=== PATIENT | female | born 1985 | race Caucasian/White ===

== ENCOUNTER 2019-06-25 20:08 | Emergency (ER) | payer MEDICAID, SELFPAY ==
[2019-06-25 20:15] VITALS: BP 123/76; PULSE 82; RESP 16; TEMP 37.1; O2SAT 99
--- NOTE | 2019-06-25 20:48 | W.ED.GENAD ---
Discharge Plan Disposition Patient Disposition: HOME Condition: Improving Discharge Details Chief Complaint: DentalOral Clinical Impression: Odontalgia Primary Care Provider: Kvng Masters ED Provider: Homar Ocasio Home Meds and New Rx's Prescriptions: New penicillin V potassium 500 mg tablet 500 mg PO QID 10 Days Qty: 40 RF: 0 Continued buprenorphine HCl 8 MG tablet, sublingual 8 mg Sublingual DAILY RF: 0 buprenorphine HCl 2 MG tablet, sublingual 2 mg Sublingual DAILY Qty: 30 RF: 0 sertraline 100 mg Tablet 100 mg DAILY RF: 0 Discharge Instructions Instructions: Toothache (ED) Additional Instructions: Please follow-up with dentistry for recheck. See enclosed list of providers. Take antibiotics as prescribed. May continue Tylenol and/or ibuprofen as needed for discomfort. May use dental wax to reduce discomfort. Return to the ER for increasing pain, swelling, development of fever, or any other acute concerns. Medical Decision Making 33-year-old female with poor dentition, numerous dental caries, presents with right mandibular premolar odontalgia. She does not have evidence of abscess. I discussed with her that I feel she will need the tooth removed. Her pain was improved with the administration of an inferior alveolar nerve block. I will place her on penicillin. She may use dental wax for comfort, continue [id number] medications for comfort. She will follow-up with dentistry. [facility] General Mode of arrival: ambulatory. Date/Time Provider Initiated Documentation: 06/25/19 20:32. Limitations to Documentation: no limitations. Information obtained by: patient. History of Present Illness 33 year old F presents to the emergency department with the chief complaint of Right lower mandibular broken tooth and pain, described as moderate, Quality is described as aching, and is localized to the mouth and right. Patient reports no radiation. Patient started experiencing this day(s) and it has been intermittent. Eating improves symptom(s), Patient notes no other symptoms.. Patient did receive the following treatments prior to arrival, NSAID Related Data Home Medications Medication Instructions Recorded Confirmed buprenorphine HCl 2 mg SUBLINGUAL DAILY #30 12/10/16 06/25/19 buprenorphine HCl 8 mg SUBLINGUAL DAILY tab-cap 12/10/16 06/25/19 penicillin V potassium 500 mg PO QID 10 Days #40 tab 06/25/19 sertraline 100 mg DAILY 06/25/19 06/25/19 Previous Rx's Medication Instructions Recorded penicillin V potassium 500 mg PO QID 10 Days #40 tab 06/25/19 Allergies Allergy/AdvReac Type Severity Reaction Status Date / Time cefaclor [From Ceclor] Allergy Unknown Unverified 06/25/19 20:18 sulfamethoxazole Allergy Unknown Unverified 06/25/19 20:18 [From Septra] trimethoprim [From Septra] Allergy Unknown Unverified 06/25/19 20:18 General Stated Complaint: DentalOral LAURIE: 4 Review of Systems Narrative: 6 systems reviewed and otherwise negative. No change to voice. She has otherwise recently been well. [facility] Medical History Asthma Suboxone maintenance treatment complicating , antepartum Surgical History (Updated 06/14/18 @ 14:36 by [employer] [place]) section (07/28/10) [facility]- 08/31/2013 Family History Mother Substance abuse cocaine during Alcohol abuse Mental disorder Schizophrenia, manic depression Hepatitis C Stroke Multiple sclerosis Asthma Father No problems noted. Brother Substance abuse multiple drugs Alcohol abuse Mental disorder Depression, pulling hair out disorder Social History Smoking/Tobacco Use Status: Current every day Tobacco Type: cigarettes Drug use: Daily Do you feel safe at home: Yes Do you feel safe in your relationship?: Yes Exam Narrative Exam Narrative: GEN: awake, alert, oriented 3. Pleasant, well groomed, interactive. HEAD: Normocephalic, atraumatic ENT: Mucous membranes moist, oropharynx with numerous dental caries. Broken buccal and lingual cusps of first premolar, tenderness at that tooth, no fluctuance or swelling. External ear exam unremarkable EYES: PERRL, EOMI NECK: Full ROM, no IMER, no menigismus CHEST/RESP: Nontender, clear to auscultation bilateral, no wheeze/rhonchi/rales CARDIOVASCULAR: RRR, no murmur, rub juarez. 2+ Rad pulse bilateral EXT: Full ROM, no edema, no rash Neuro: Grossly normal neurologic exam, conversant, interactive. Psych: Speech fluent, thoughts congruent, affect normal Course Vital Signs Vital signs: Vital Signs Temperature 37.1 C 06/25/19 20:15 Pulse 82 10/28/19 20:15 Respiratory Rate 16 06/25/19 20:15 Blood Pressure 123/76 06/25/19 20:15 Pulse Oximetry 99 06/25/19 20:15 Temperature 37.1 C 06/25/19 20:15 Temperature Source Skin 06/25/19 20:15 Pulse 82 06/25/19 20:15 Respiratory Rate 16 06/25/19 20:15 Respiratory Effort 06/25/19 20:21 Blood Pressure 123/76 06/25/19 20:15 Blood Pressure Position Sitting 06/25/19 20:15 Pulse Oximetry 99 06/25/19 20:15 Oxygen Delivery Method Room Air 06/25/19 20:15 Oxygen Flow Rate 0 06/25/19 20:15 Pain Level 6 06/25/19 20:21 Procedures Nerve Block Nerve Block 1: Local Anesthetic: Lidocaine 1% and Bupivicaine 0.25% Amount of anesthesia used (mL): 2 Side: right Intraoral Nerve Block: inferior alveolar Procedure Successful: Yes Patient Tolerated Procedure: well Complications: none
[2019-06-25] MEDS: Penicillin V POTASSIUM 500 MG TAB, 4 TABS/BTL PO (20:56)
== END 2019-06-25 20:58 | disposition home or self-care (01) ==
PROVIDERS: Emergency Provider Emergency Medicine; PCP Family Medicine
DX: K08.89 Other specified disorders of teeth and supporting structures (principal)
CPT/HCPCS: 64400

== ENCOUNTER 2019-08-05 16:03 | Emergency (ER) | payer MEDICAID, SELFPAY ==
[2019-08-05 16:06] VITALS: BP 136/95; PULSE 95; RESP 16; TEMP 36.6; O2SAT 95
--- NOTE | 2019-08-05 16:09 | W.ED.GENAD ---
Discharge Plan Disposition Patient Disposition: HOME Condition: Stable Discharge Details Chief Complaint: RespSymp Clinical Impression: Acute sinusitis Primary Care Provider: Kvng Masters ED Provider: Crsi Clancy Home Meds and New Rx's Prescriptions: New amoxicillin-pot clavulanate [Augmentin] 875-125 mg tablet 1 tab PO BID 10 Days Qty: 20 RF: 0 No Action buprenorphine HCl 8 MG tablet, sublingual 12 mg Sublingual DAILY RF: 0 sertraline 100 mg Tablet 100 mg DAILY RF: 0 Discharge Instructions Instructions: How to Stop Smoking (ED), Sinusitis (ED), Cigarette Smoking and Your Health (GEN) Additional Instructions: Take the antibiotics until finished. Alternate Tylenol and Motrin as needed and directed for pain. Use saline nose spray to help with clearing mucus and keeping the inside of your nose moist. Follow-up with your primary care doctor within the next week for reevaluation. Return to the emergency department if you develop any worsening or new concerning symptoms. Discharge Data Discharge Date/Time-TO BE ENTERED AT DEPARTURE: 08/05/19 16:30 Discharge Physician: Cris Clancy Medical Decision Making 33-year-old female who is a tobacco smoker who presents with sinus congestion, sinus and facial pain, green nasal discharge for the past week. Afebrile. Patient appears nontoxic. She has right frontal and maxillary sinus tenderness, normal TMs and posterior pharynx. Lungs clear. Denies chance of , she has Nexplanon. Discussed with patient that her symptoms could have started as a viral sinusitis but may have evolved into a bacterial sinusitis. As she is a smoker, increased risk for bacterial colonization. She is advised on the importance of smoking cessation for general health and with risk of resistant and prolonged infections. Allergy list notes a history of allergies to Ceclor. Patient states this is a long time ago when she is unsure of the reaction. She states she has tolerated penicillin and amoxicillin in the past without any adverse reaction. She was given 1 dose of Augmentin here as well as prescription for home. She was advised on saline nose spray, alternate Tylenol Motrin. She is advised to follow-up with her primary care doctor for reevaluation and to return at anytime if worse. HPI General Date/Time Provider Initiated Documentation: 08/05/19 16:05. HPI Narrative: Patient is a 33-year-old female who presents with sinus congestion, green and yellow nasal discharge, right-sided facial pain, headache, and sore throat for the past week. Patient states she saw her primary care doctor several days ago for the same complaint and was diagnosed in sinus infection and prescribed decongestants which she has been taking without relief. She states she feels she needs antibiotics. She admits to occasional hot and cold chills but she denies any known fever. She has been alternating Tylenol and Motrin. She denies ear pain, neck pain. She does admit to occasional cough with green sputum but denies any shortness of breath or chest pain. Related Data Home Medications Medication Instructions Recorded Confirmed buprenorphine HCl 12 mg SUBLINGUAL DAILY tab-cap 12/10/16 08/05/19 sertraline 100 mg DAILY 06/25/19 08/05/19 amoxicillin-pot clavulanate 1 tab PO BID 10 Days #20 tab 08/05/19 [Augmentin] Previous Rx's Medication Instructions Recorded amoxicillin-pot clavulanate 1 tab PO BID 10 Days #20 tab 08/05/19 [Augmentin] Allergies Allergy/AdvReac Type Severity Reaction Status Date / Time cefaclor [From Ceclor] Allergy Unknown Unverified 08/05/19 16:09 sulfamethoxazole Allergy Unknown Unverified 08/05/19 16:09 [From Septra] trimethoprim [From Septra] Allergy Unknown Unverified 08/05/19 16:09 General Stated Complaint: RespSymp LAURIE: 4 Review of Systems All systems reviewed & are unremarkable except as noted in HPI and below Constitutional Constitutional: Reports as per HPI, Denies chills, Denies fever(s) and Reports headache(s) Eyes Eyes: Denies blurry vision ENT Ears, Nose, Mouth, and Throat: Denies dizziness, Reports headache(s), Reports nasal congestion, Reports nasal discharge, Reports sinus pain, Reports sinus pressure, Reports sore throat (mild ) and Denies throat swelling Cardiovascular Cardiovascular: Denies chest pain and Denies dyspnea Respiratory Respiratory: Reports cough and Denies dyspnea Gastrointestinal Gastrointestinal: Denies abdominal pain, Denies diarrhea and Denies vomiting Genitourinary Genitourinary: Denies hematuria and Denies dysuria Musculoskeletal Musculoskeletal: Denies back pain and Denies numbness Integumentary/Breasts Skin/Breast: Denies lesions and Denies rash Neurologic Neurologic: Denies dizziness, Reports headache(s), Denies focal weakness and Denies numbness Allergic/Immunologic Allergic/Immunologic: Denies throat swelling [facility] Medical History Asthma Suboxone maintenance treatment complicating , antepartum Surgical History section (07/28/10) [facility] Family History Mother Substance abuse cocaine during Alcohol abuse Mental disorder Schizophrenia, manic depression Hepatitis C Stroke Multiple sclerosis Asthma Father No problems noted. Brother Substance abuse multiple drugs Alcohol abuse Mental disorder Depression, pulling hair out disorder Social History Smoking/Tobacco Use Status: Current every day Tobacco Type: cigarettes Alcohol Intake: never Drug use: Current Sobriety Substance use type: opiates Do you feel safe at home: Yes Do you feel safe in your relationship?: Yes Exam Const General: cooperative, healthy appearing and no acute distress HENMT Head: normal to inspection Ears: hearing grossly normal bilaterally, external ears normal and TM's normal bilaterally General nose exam: external nose normal Face and sinus: sinus tenderness frontal (Right) and maxillary (Right) Mouth: oral mucosae normal Teeth and gingiva: poor dentition Throat: posterior oropharynx normal, tonsils normal, uvula midline and no peritonsillar masses Eyes General: appearance normal, both eyes and all related structures Neck Neck: normal visual inspection, full ROM, no lymphadenopathy, no meningeal signs, trachea midline, supple and No submandibular swelling Resp Effort & Inspection: normal respiratory effort and able to speak in complete sentences Auscultation: clear to auscultation bilaterally, no rhonchi and no wheezes Cardio Rate: regular rate Rhythm: regular rhythm Skin General skin exam: no rashes or lesions noted Neuro General: alert, awake and oriented x3 Motor: muscle tone normal throughout Extrem General: normal to inspection and full ROM Psych Appearance: grossly normal Affect: normal affect Course Vital Signs Vital signs: Vital Signs Temperature 97.9 F 08/05/19 16:06 Pulse 95 H 08/05/19 16:06 Respiratory Rate 16 08/05/19 16:06 Blood Pressure 136/95 H 08/05/19 16:06 Pulse Oximetry 95 08/05/19 16:06 Temperature 97.9 F 08/05/19 16:06 Temperature Source Temporal Artery Scan 08/05/19 16:06 Pulse 95 H 08/05/19 16:06 Respiratory Rate 16 08/05/19 16:06 Respiratory Effort Non-Labored 08/05/19 16:06 Respiratory Depth Normal 08/05/19 16:06 Blood Pressure 136/95 H 08/05/19 16:06 Blood Pressure Position Sitting 08/05/19 16:06 Pulse Oximetry 95 08/05/19 16:06 Oxygen Delivery Method Room Air 08/05/19 16:06 Oxygen Flow Rate 0 08/05/19 16:06
[2019-08-05] MEDS: Amox. 875/Clav. 125, 2 TABS/BTL 1 TAB PO (16:32)
== END 2019-08-05 16:30 | disposition home or self-care (01) ==
PROVIDERS: Emergency Provider Physician Assistant; PCP Family Medicine
DX: J01.80 Other acute sinusitis (principal); F17.210 Nicotine dependence, cigarettes, uncomplicated
CPT/HCPCS: 99283

== ENCOUNTER 2021-09-18 20:59 | Outpatient (REF) | payer MEDICAID, SELFPAY ==
[2021-09-18 20:30] LABS: Calculated LDL 121 mg/dL (<100); Cholesterol 186 mg/dL (<200); HDL Cholesterol 50 mg/dL (40-60); Triglyceride 75 mg/dL (<150)
[2021-09-21 10:04] LABS: Hepatitis B Surface Ag Negative (Negative)
== END 2021-09-18 21:00 | disposition home or self-care (01) ==
LOC: NCHCN 20:59
PROVIDERS: PCP Family Medicine; Visit Provider Family Medicine
DX: Z00.00 Encounter for general adult medical examination without abnormal findings (principal)
CPT/HCPCS: 80061; 87340

== ENCOUNTER 2022-05-05 18:29 | Emergency (ER) | payer MEDICAID, SELFPAY ==
[2022-05-05] VITALS (17 sets, daily range): BP systolic 108–137; BP diastolic 68–99; PULSE 72–111; RESP 7–26; TEMP 35.8; O2SAT 97–100
--- NOTE | 2022-05-05 18:30 | RT.EKG_ITS ---
APPROVED REPORT Exam: Resting ECG Reason for Exam: DIFFICULTY BREATHING Patient Location: E HR:99 bpm ECG Measurements Heart Rate 99 AXIS TX 115 P 79 QRSd 75 QRS 58 QT 349 T 40 QTc 449 Conclusion Sinus rhythm...normal P axis, V-rate 60- 99
--- NOTE | 2022-05-05 18:45 | DI.CT_ITS ---
Exam(s) CT CHEST PE ABD PELVIS W EXAM: CT CHEST PE ABD PELVIS W CLINICAL HISTORY: pleuritic right chest and upper abdomen pain. TECHNIQUE: Imaging Protocol: Axial CT angiography was performed with multi-slice acquisition and mu lti-planar and/or 3D reconstructions. CONTRAST MATERIAL: Intravenous: Omnipaque 350contrast volume:100 mL COMPARISON: No exams were available for comparison FINDINGS: CHEST: Tracheobronchial tree: Patent where visualized. Pulmonary parenchyma: There is a patchy consolidation in the left upper lobe anteriorly. No architec tural distortion. Pulmonary Arteries: No evidence of filling defect to suggest pulmonary emboli. Mediastinum and Racquel: No dominant adenopathy or fluid collection. The esophagus is unremarkable. Visualized thyroid gland: Unremarkable. Pleura: No effusion or pneumothorax. Heart: The heart is not dilated. No coronary artery calcifications are seen. No pericardial effusion. Aorta: Thoracic aorta non-dilated. No evidence of dissection. Bones: Within normal limits for the patient's age. Soft tissues: Unremarkable. ABDOMEN: Liver: Normal density. No measurable mass. Portal, Superior Mesenteric, and Splenic Veins: Unremarkable. Gallbladder and Biliary Tract: No radiodense calculus or dilation. Pancreas: Normal density, no abnormal calcifications or inflammatory process. Spleen: Normal. Adrenals: No masses seen. Kidneys: Normal size, contour and axis. No radiodense stones or obstructive uropathy. No masses seen. Abdominal Aorta: Abdominal portion non-dilated. Bowel: No evidence of bowel obstruction. There is diffuse thickening of the antrum of the stomach. No evidence of appendicitis. Peritoneal Cavity: There is a trace amount of fluid in the pelvis which is likely physiologic. No fr ee air. Lymph Nodes: Within normal limits. Bones: Within normal limits for the patient's age. There is sclerosis seen at the romi bilaterally, left greater than right consistent with, osteitis condensans ileitis. Soft Tissues: Unremarkable. PELVIS: Bladder: Symmetric distention, no gross wall thickening. Reproductive Organs: Bilateral ovarian cysts. The largest is on the right and measures 3.4 cm. Thes e are likely physiologic. Lymph Nodes: Within normal limits. Bones: Within normal limits. IMPRESSION: 1. No evidence pulmonary embolism, thoracic aortic dissection or aneurysm. 2. Left upper lobe pneumonia. 3. No acute abdominal or pelvic process. 4. Prominent antral gastric wall thickening. Inflammatory/infectious gastritis should be considered. Peptic ulcer disease should also be considered. Follow-up of the gastric findings should be consid ered if clinically appropriate. Complete RADIATION DOSE DELIVERED: 1,222.82mGy.cm Total DLP DATA REPOSITORY: All CT scans at this facility are submitted to the National Radiology Data Registry (NRDR) Dose Index Registry (DIR) with the [employer] (ACR). RADIATION OPTIMIZATION: All CT scans at this facility use at least one of these dose optimization te chniques: automated exposure control; mA and/or kV adjustment per patient size (includes targeted exa ms where dose is matched to clinical indication); or iterative reconstruction.
--- NOTE | 2022-05-05 18:59 | ED.GENADUL_ITS ---
Discharge Plan Disposition Patient Disposition: HOME Condition: Stable Discharge Details Clinical Impression: Chest pain, Abdominal pain, Gastritis Primary Care Provider: Kvng Masters ED Provider: Jose Alarcon Home Meds and New Rx's Prescriptions: New doxycycline hyclate 100 mg tablet 100 mg PO BID Qty: 14 0RF ondansetron 4 mg tablet,disintegrating 4 mg PO Q8H PRN (Reason: nausea and vomiting) Qty: 30 0RF Continued buprenorphine HCl 8 MG tablet, sublingual 12 mg Sublingual DAILY sertraline 100 mg Tablet 100 mg DAILY hydroxyzine HCl 25 mg tablet 25 mg PO PRN PRN Label Comments: TAKE 1 TABLET BY MOUTH THREE TIMES DAILY NEEDED Discharge Instructions Instructions: Gastritis (ED) Additional Instructions: your cat scan showed some inflammation of the stomach likely related to acid reflux you are being treated for a possible lung infection based on your lung findings on cat scan if not better in a week follow up with your primary care provider if you feel more ill, have severe worsening pain or persistent vomit return to the emergency department Medical Decision Making 36 yo female on suboxone and is currently sober, comes in with chief complaint of 3 days of right sided lower chest and upper abdomen pain and n/v. She denies fevers, chills, vaginal bleeding or discharge. She denies having symptoms like this in the past. She is stable on arrival, mildly tachycardic in the low 100's. She has normal appearing ef on bedside pocus and no pericardial effusion or significantly enlarged rv. She has a soft abdomen with tenderness in the ruq, no lower abdomen tenderness. Clear lung sounds. Given location of pain concern for pe, nstemi, pericarditis, cholecystitis, will obtain labs including cbc, cmp, lipase, and obtain ct for pe and also ct abd/pelvis pt feeling significantly better and has minimal epigastric tenderness now, no ruq tenderness. labs unremarkable, ct shows possible pneumonia inleft upper lobe, she states she has a cough but is not worse than her baseline, will treat with doxy. Her ct abdomen shows no acute findings, has findings possibly due to gastritis, states she used to be on zantac but not anymore. Suspect gastritis vs gastroenteritis, given 3 days of symptoms do not feel delta troponin indicated. She is stable for d/c, advised to f/u with pcp and return precautions given Differential Diagnosis Differential Diagnosis: pe, nstemi, pericarditis, cholecystitis, pancreatitis Imaging Data Radiologic Study: Attestation: I personally reviewed and interpreted this imaging study as follows: Imaging: CT Scan Radiologist's impression: IMPRESSION: 1. Small left upper lobe pneumonia. 2. Trace pulmonary emphysema.IMPRESSION: 1. No definite acute pathology. 2. Prominent gastric antral wall, however this region is very difficult to assess on CT. Consider further workup for gastritis if clinically indicated. Lab Data Lab results reviewed: Yes I reviewed the patient's lab results. ECG Data Attestation: I personally reviewed and interpreted this ECG (s) as follows: Prior ECG tracings: not available for review Interpretation: sinus rhythm, rate of 99, no acute st t wave ischemic findings HPI General Mode of arrival: ambulatory . Date/Time Provider Initiated Documentation: 05/05/22 18:33 . Limitations to Documentation: no limitations . Information obtained by: patient . History of Present Illness 36 year old F presents to the emergency department with the chief complaint of abdomen pain and chest pain, Patient started experiencing this day(s) (3) and it has been constant. No relieving factors improve symptom(s), No exacerbating factors reported . Patient did receive the following treatments prior to arrival, none Related Data Home Medications Medication Instructions Recorded Confirmed buprenorphine HCl 8 mg sublingual 12 mg sublingual DAILY 12/10/16 05/05/22 tablet sertraline 100 mg tablet 100 mg DAILY 06/25/19 05/05/22 doxycycline hyclate 100 mg tablet 100 mg PO BID #14 tabs 05/05/22 hydroxyzine HCl 25 mg tablet 25 mg PO PRN PRN 05/05/22 05/05/22 ondansetron 4 mg disintegrating 4 mg PO Q8H PRN nausea and 05/05/22 tablet vomiting #30 tabs Previous Rx's Medication Instructions Recorded doxycycline hyclate 100 mg tablet 100 mg PO BID #14 tabs 05/05/22 ondansetron 4 mg disintegrating 4 mg PO Q8H PRN nausea and 05/05/22 tablet vomiting #30 tabs Allergies Allergy/AdvReac Type Severity Reaction Status Date / Time [facility] [[facility] [place] Allergy Unknown Unverified 05/05/22 19:52 sulfamethoxazole Allergy Unknown Unverified 05/05/22 19:52 [From ] trimethoprim [From Septra] Allergy Unknown Unverified 05/05/22 19:52 General Stated Complaint: Chest Pain LAURIE: 2 Review of Systems All systems reviewed & are unremarkable except as noted in HPI and below Constitutional Constitutional: Denies chills, Denies fever(s) and Denies weakness Respiratory Respiratory: Denies cough Musculoskeletal Musculoskeletal: Denies joint swelling Neurologic Neurologic: Denies weakness PFSH All Active Problems (Updated 05/05/22 @ 20:24 by Jose Alarcon MD) Status post repeat low transverse section (Acute 08/31/13) Suboxone maintenance treatment complicating , antepartum (Acute 08/31/13) Smoker (Acute 08/31/13) Chest pain (Acute) Abdominal pain (Acute) Gastritis (Acute) Medical History (Updated 05/05/22 @ 20:24 by Jose Alarcon MD) Asthma Suboxone maintenance treatment complicating , antepartum Surgical History section (07/28/10) [facility]- 08/31/2013 Family History Mother Substance abuse cocaine during Alcohol abuse Mental disorder Schizophrenia, manic depression Hepatitis C Stroke Multiple sclerosis Asthma Father No problems noted. Brother Substance abuse multiple drugs Alcohol abuse Mental disorder Depression, pulling hair out disorder Social History Smoking/Tobacco Use Status: Current every day Tobacco Type: cigarettes Smoking risk assessment performed?: Yes Alcohol Intake: never Drug use: Current Sobriety Substance use type: opiates Do you feel safe at home: Yes Do you feel safe in your relationship?: Yes Exam Const General: no acute distress Orientation: alert HENMT Head: normal to inspection Ears: external ears normal General nose exam: external nose normal Mouth: moist mucous membranes Eyes General: appearance normal, both eyes and all related structures Neck Neck: normal visual inspection Resp Effort & Inspection: normal respiratory effort and able to speak in complete sentences Cardio Rate: regular rate GI Palpation: soft and tender Skin General skin exam: no rashes or lesions noted Neuro General: patient alert and patient oriented x3 Extrem General: normal to inspection Psych Mental Status: mental status grossly normal Course Vital Signs Vital signs: Vital Signs Temperature 35.8 C L 05/05/22 18:35 Pulse 111 H 05/05/22 18:35 Respiratory Rate 26 H 05/05/22 18:35 Blood Pressure 137/99 H 05/05/22 18:35 Pulse Oximetry 99 05/05/22 18:35 Temperature 35.8 C L 05/05/22 18:35 Temperature Source Tympanic 05/05/22 18:35 Pulse 111 H 05/05/22 18:35 Respiratory Rate 26 H 05/05/22 18:35 Blood Pressure 137/99 H 05/05/22 18:35 Blood Pressure Position Sitting 05/05/22 18:35 Pulse Oximetry 99 05/05/22 18:35 Oxygen Delivery Method Room Air 05/05/22 18:35 Oxygen Flow Rate 0 05/05/22 18:35 Pain Level 5 05/05/22 18:35 POCUS Exam (ED) Limited Cardiac Exam DATE OF EXAM: 05/05/22 TIME OF EXAM: 19:00 PROVIDER THAT PERFORMED THE STUDY: Jose Alarcon IS THIS A REPEAT EXAM DURING THIS ENCOUNTER: no REASON FOR EXAM: Chest pain VISUALIZED STRUCTURES: Four Chambers and Aortic valve VIEW OBTAINED: Parasternal long-axis and Subxiphoid PERTINENT FINDINGS/IMPRESSION: No LV dysfunction, abnormalities noted, No pericardial effusion and No RV dilation Exam complete
[2022-05-05 19:08] LABS: Abs Immature Grans 0.06 10^3/uL (0.0-0.06); Absolute Eosinophil Count 0.03 10^3/uL (0.0-0.7); Absolute Monocyte Count 0.67 10^3/uL (0.1-0.8); Basophils % 0.6; Eosinophils % 0.2; HCT 45.2 % (36.0-46.0); HGB 15.7 g/dL (11.2-15.7); Immature Grans % 0.4; Lymphocytes % 12.6; MCH 30.7 pg (27.0-33.0); MCHC 34.7 % (32.0-36.0); MCV 89 fL (80-95); MPV 8.6 fL (8.0-11.0); Monocytes % 4.2; Platelet Count 492 10^3/uL (130-400); RBC 5.11 10^6/uL (3.93-5.22); RDW 13.1 % (11.7-14.6); RDW-SD 42.6 fL; WBC 15.89 10^3/uL (4.4-10.8)
[2022-05-05] MEDS: Prochlorperazine 10 MG/2 ML VIAL IVP (19:09)
[2022-05-05] MEDS: Ketorolac 15 MG/ML VIAL IVP (19:09)
[2022-05-05 19:22] LABS: Lipase 90 U/L (73-393); Troponin I < 50 ng/L (<or=60)
[2022-05-05 19:25] LABS: Absolute Neutrophil Count 13.03 10^3/uL (1.2-6.7)
[2022-05-05] MEDS: Omnipaque 350 MG/ML 100 ML BTL IJ (19:48)
[2022-05-05 19:50] LABS: ALT 11 U/L (14-59); AST 13 U/L (15-37); Alkaline Phosphatase 100 U/L (46-116); Anion Gap 11.1 mmol/L (3-11); BUN 11 mg/dL (7-18); Bilirubin, Total 0.5 mg/dL (0.2-1.0); CO2 24.9 mmol/L (21.0-32.0); Calcium 9.6 mg/dL (8.5-10.1); Chloride 98 mmol/L (98-107); Estimated GFR 75.81 (mL/min/1.73m2); Glucose 110 mg/dL (74-106); Potassium 3.8 mmol/L (3.5-5.1); Sodium 134 mmol/L (136-145); Total Protein 9.2 g/dL (6.4-8.2)
--- NOTE | 2022-05-05 20:11 | DI.VRAD_ITS ---
PROCEDURE INFORMATION: Exam: CTA Chest With Contrast Exam date and time: 05/05/2022 19:38 Age: 36 years old Clinical indication: Abdominal pain; Localized; Right-sided and other: Pleuritic right chest and upper abdomen pain; Prior surgery; Surgery date: 6+ months; Surgery type: TECHNIQUE: Imaging protocol: Computed tomographic angiography of the chest with contrast. 3D rendering (Not supervised by radiologist): MIP and/or 3D reconstructed images were created by the technologist. Contrast material: 350; Contrast volume: 100 ml; Contrast route: INTRAVENOUS (IV); COMPARISON: No relevant prior studies available. FINDINGS: Pulmonary arteries: No pulmonary emboli. Aorta: No aortic aneurysm. No aortic dissection. Lungs: Mild airspace opacification in the left upper lobe. Trace pulmonary emphysema. Pleural spaces: No pneumothorax. No pleural effusion. Heart: No cardiomegaly. No pericardial effusion. Lymph nodes: No enlarged lymph nodes. Bones/joints: No acute fracture. Soft tissues: No suspicious lesions. IMPRESSION: 1. Small left upper lobe pneumonia. 2. Trace pulmonary emphysema. PROCEDURE INFORMATION: Exam: CT Abdomen And Pelvis With Contrast Exam date and time: 05/05/2022 19:38 Age: 36 years old Clinical indication: Abdominal pain; Localized; Right-sided and other: Pleuritic right chest and upper abdomen pain; Prior surgery; Surgery date: 6+ months; Surgery type: TECHNIQUE: Imaging protocol: Computed tomography of the abdomen and pelvis with contrast. Radiation optimization: All CT scans at this facility use at least one of these dose optimization techniques: automated exposure control; mA and/or kV adjustment per patient size (includes targeted exams where dose is matched to clinical indication); or iterative reconstruction. Contrast material: 350; Contrast volume: 100 ml; Contrast route: INTRAVENOUS (IV); COMPARISON: OB US 2-3 TRIMESTER TRANSABD*P 09/28/2016 16:19 FINDINGS: Liver: Focal fat in the liver near the fissure for the ligamentum teres. No hepatic masses. Gallbladder and bile ducts: No calcified stones. No ductal dilation. Pancreas: No ductal dilation. No masses. Spleen: No splenomegaly or focal lesions. Adrenal glands: No mass. Kidneys and ureters: Favor benign parapelvic cysts in the kidneys. No definite hydronephrosis. Ultrasound or delayed phase of imaging could help to differentiate the calices from potential adjacent cysts. No renal masses. Stomach and bowel: The gastric antrum appears symmetrically moderately thick-walled. This area is difficult to assess on CT. Appendix: No evidence of appendicitis. Intraperitoneal space: No free air. No significant fluid collection. Vasculature: No abdominal aortic aneurysm. Lymph nodes: No significantly enlarged lymph nodes. Urinary bladder: Unremarkable as visualized. Reproductive: Cystic structures in the pelvis measuring up to 33 mm on the right favoring benign follicles. These could be worked up with pelvic ultrasound if clinically indicated. Normal CT appearance of the uterus. Bones/joints: Osteitis condensans ilii. No acute fracture or subluxation. Soft tissues: No suspicious lesions. IMPRESSION: 1. No definite acute pathology. 2. Prominent gastric antral wall, however this region is very difficult to assess on CT. Consider further workup for gastritis if clinically indicated. 3. Additional findings as described. Dictated and Authenticated by: Winifred Henderson MD. Ordering:LEATHA Garcia MD
[2022-05-05] MEDS: Doxycycline Hyclate 100 MG CAP PO (20:34)
[2022-05-05] MEDS: Ondansetron O.D.T. 4 MG TABEF, 3 TABS/BTL PO (20:34)
== END 2022-05-05 20:53 | disposition home or self-care (01) ==
PROVIDERS: Emergency Provider Emergency Medicine; PCP Family Medicine
DX: K29.70 Gastritis, unspecified, without bleeding (principal); R07.9 Chest pain, unspecified; R00.0 Tachycardia, unspecified; F17.210 Nicotine dependence, cigarettes, uncomplicated
CPT/HCPCS: 71275; 74177; 80053; 83690; 93005; 93308; 96374; 96375; 99285; 83735; 84484; 85025; 93010; 99284; J0780; J1885; J3490

== ENCOUNTER 2023-02-18 00:40 | Outpatient (CLI) | payer MEDICAID, SELFPAY ==
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
== END 2023-02-18 01:00 ==
LOC: DI 00:40
PROVIDERS: PCP Family Medicine; Visit Provider Family Medicine
DX: M79.641 Pain in right hand (principal); W22.8XXA Striking against or struck by other objects, initial encounter
CPT/HCPCS: 73130

== ENCOUNTER 2023-04-20 12:42 | Outpatient (REF) | payer MEDICAID, SELFPAY ==
--- NOTE | 2023-04-20 12:15 | PAPFT_PTH ---
PATIENT: Lisa Mcintyre LOC: [facility]#:[id number] AGE/SX: 37/F ROOM: RE04/20/[address]: Kvng Masters : 1985 BED: DIS: 04/20/2023 SPEC #: [id number] RECD: 04/20/23 17:05 STATUS: RAYMOND REAilyn #: [id number] MATTHEW: 04/20/23 12:[address]: Kvng Masters DEPT: [facility] Cytology RECD BY: Mari Obrien Tissues: 1 - CX/ENDOCX FOR PAP SMEARS Procedures: PAP THIN PREP/UVM Screening HPV DNA PROBE Comments: [id number]
== END 2023-04-20 12:43 | disposition home or self-care (01) ==
LOC: NCHCN 12:42
PROVIDERS: PCP Family Medicine; Visit Provider Family Medicine
DX: Z12.4 Encounter for screening for malignant neoplasm of cervix (principal); Z11.51 Encounter for screening for human papillomavirus (HPV)
CPT/HCPCS: 88142; 87624

== ENCOUNTER 2023-12-20 20:39 | Outpatient (REF) | payer MEDICAID, SELFPAY | END 2023-12-20 20:40 | disposition home or self-care (01) | LOC: LBN 20:39 | PROVIDERS: PCP Family Medicine; Visit Provider Physician Assistant | DX: X58.XXXD Exposure to other specified factors, subsequent encounter; S61.202D Unspecified open wound of right middle finger without damage to nail, subsequent encounter | CPT/HCPCS: 87077; 87070; 87186; 87205 ==

== ENCOUNTER → 2023-12-21 19:42 | Outpatient (CLI) | payer MEDICAID, SELFPAY ==
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
== END ==
PROVIDERS: PCP Family Medicine; Visit Provider Physician Assistant
DX: S69.91XA Unspecified injury of right wrist, hand and finger(s), initial encounter (principal); X58.XXXA Exposure to other specified factors, initial encounter
CPT/HCPCS: 73130; 73140

== ENCOUNTER 2024-06-04 20:37 | Emergency (ER) | payer MEDICAID, SELFPAY ==
[2024-06-04 20:45] VITALS: BP 129/74; PULSE 112; RESP 25; TEMP 39.2; O2SAT 93
[2024-06-04 20:50] VITALS: BP 129/74; PULSE 115; RESP 20; TEMP 39.2; O2SAT 93
--- OUTSIDE RECORDS SUMMARY | 2024-06-04 20:59 | XMS_ITS | Encounter Summary ---
Author Organization [facility] Address [address] [place] [address] Care Team Providers Care Internal Audit Senior Manager Name Role Phone Unknown, Provider Primary Care Provider [phone] Encounter Details Date Type Department Care Team (Latest Contact Info) Description 02/14/2017 10:17 EDT - 02/14/2017 23:59 EDT Hospital Encounter [address] [address] Unknown, Provider, Discharge Disposition: Home or Self Care Social History Tobacco Use Types Packs/Day Years Used Date Smoking Tobacco: Never Assessed Sex and Gender Information Value Date Recorded Sex Assigned at Not on file Gender Identity Not on file Sexual Orientation Not on file documented as of this encounter Discharge Disposition Disposition Code Departure Means Destination Home or Self Group Home documented in this encounter Plan of Treatment Not on file documented as of this encounter Visit Diagnoses Not on filedocumented in this encounter Care Teams Internal Audit Senior Manager Relationship Specialty Start Date End Date Unknown, Provider, PCP - General 12/08/09 02/15/17 documented as of this encounter
--- OUTSIDE RECORDS SUMMARY | 2024-06-04 20:59 | XMS_ITS | Encounter Summary ---
Author Organization [facility] Address [address] [place] [address] Care Team Providers Care Direct Support Specialist Name Role Phone Unknown, Provider Primary Care Provider [phone] Encounter Details Date Type Department Care Team (Late st Contact Info) Description 02/14/2017 Results Only [facility] [phone] Casimiro Patino MD [address] [place] [address] Social History Tobacco Use Types Packs/Day Years Used Date Smoking Tobacco: Never Assessed Sex and Gender Information Value Date Recorded Sex Assigned at Not on file Gender Identity Not on file Sexual Orientation Not on file documented as of this encounter Plan of Treatment Not on file documented as of this encounter Procedures Procedure Name Priority Date/Time Associated Diagnosis Comments SURGICAL PATHOLOGY Routine 02/14/2017 18 :16 EDT documented in this encounter Results * SURGICAL PATHOLOGY (02/14/2017 18:16 EDT) Pathology Report: SURGICAL PATHOLOGY REPORT Reports generated via electronic interface contain original data; however they are lacking the format of the original report. Caution should be taken when reading/interpret ing unformatted reports. Name: ? CYRUS SAVAGE ? Accession #: ? [id number] ? : ? 1985 (Age: 31) ??F ? Collect Date: ? 02/14/2017 ? Location: ? [facility] ? Receive Date: ? 02/14/2017 ? Provider: CASIMIRO PATINO MD Copy to: BAM JOYCE MD ? Final Pathologic Diagnosis: PLACENTA, PONCE, THIRD TRIMESTER: - Placental disc: ? - Large (484 g) for gestational age (32 weeks). See comment. ? - Nodular placental infarct constituting <5% of total placental disc volume. - Umbilical cord: ? - Three-vessel cord with no specific pathologic features. - membranes: ? - Pigment laden macrophages consistent with meconium deposition. Comment: The upper limit of normal (90th percentile) for placental disc weight in a [address] Salvador 02/17/2017 8:11 AM Document reviewed and electronically signed by: Sotero Salvador MD Report ??Date: 02/17/2017 08:13 By the signature above, the attending physician certifies that he/she has personally conducted a gross and/or microscopic examination of the described specimens and rendered or confirmed the above diagnosis. Specimen(s) Received: Placenta Clinical History: IUGR at 32 wks, 1-4th%ile Gross Description: ? Received in formalin labelled with proper patient identification (initials A, B) and not otherwise specified is a ponce placenta (18.0 x 15.0 x 3.0 cm) with attached umbilical cord (18.0 cm in length x 1.0 cm in diameter) and membranes. After the cord and membranes are removed, the circular placental disc weighs 484 g. ? The membranes are translucent and power and insert at the disc margin. The umbilical cord is white, shiny, and mildly coiled, with three vessels, and inserts eccentrically, 4.5 cm from the nearest disc margin. The surface is blue-ortiz to focally power-white, with arborizing vasculature. The maternal surface is power-brown with intact and complete cotyledons and a small amount of loosely attached blood clot. Sectioning reveals a dark red-brown spongy cut surface, with a firm power-red peripheral area that measures 1.5 cm in greatest dimension. ? Engine Repairer Service sections are submitted as follows: BLOCK LORENZO 1- ??two cross sections of umbilical cord and two membrane rolls 2- ??full thickness placenta, taken in close proximity to umbilical cord insertion 3-4- ??full thickness central placental disc, bisected 5- ??full thickness off-center placental disc 6- ??peripheral placenta, including firm power-red area EDUARDO Waddell (ASCP) 02/15/2017 8:43 AM End of Report [facility] 02/14/2017 18:1 6 EDT 02/14/2017 18:16 EDT Casimiro Patino MD PATHOLOGY ORDERABLES [facility] [address] [place] [address] documented in this encounter Visit Diagnoses Not on filedocumented in this encounter Care Teams Direct Support Specialist Relationship Specialty Start Date End Date Unknown, Provider, PCP - General 12/08/09 02/15/17 documented as of this encounter
--- OUTSIDE RECORDS SUMMARY | 2024-06-04 20:59 | XMS_ITS | Clinical Summary ---
Author Organization [facility] Address [address] [place] [address] Care Team Providers Care Tester Operator Name Role Phone Mabel Bhakta MD Primary Care Provider [phone] Social History Tobacco Use Types Packs/Day Years Used Date Smoking Tobacco: Never Assessed Interpersonal Safety Answer Date Record ed Physically Hurt Never 03/30/2020 Verbally Threaten Not on file 03/30/2020 Sex and Gender Information Value Date Recorded Sex Assigned at Not on file Gender Identity Not on file Sexual Orientation Not on file Plan of Treatment Health Maintenance Due Date Last Done Comments Hepatitis C Screen 1985 Hepatitis B Vaccine (1 of 3 - 19+ 3-dose series) 12/04 COVID-19 Vaccine (2022- season) 2023 Care Teams Tester Operator Relationship Specialty Start Date End Date Mabel Bhakta MD [facility] [address] [place] [address] PCP - General 02/16/17
--- OUTSIDE RECORDS SUMMARY | 2024-06-04 20:59 | XMS_ITS | Encounter Summary ---
Author Organization [facility] Address [address] [place] [address] Care Team Providers Care Assistant Spa Director Name Role Phone Mabel Bhakta MD Primary Care Provider [phone] Encounter Details Date Type Department Care Team (Latest Contact Info) Description 04/22/2023 Lab Requisition [facility] Pathology & Laboratory Medicine - [facility] [address] [place] [address] Kvng Masters MD [address] [place], [place] [id number] Encounter for screening for human papillomavirus (HPV); Encounter for screening for malignant neoplasm of cervix; Encounter for general adult medical examination without abnormal findings Social History Tobacco Use Types Packs/Day Years [...] Procedure Name Priority Date/Time Associated Diagnosis Comments PAP TEST Today 04/20/2023 12:15 EDT Encounter for screening for human papillomavirus (HPV) Encounter for screening for malignant neoplasm of cervix Encounter for general adult medical examination without abnormal findings HPV DNA DETECTION WITH GENOTYPING, PCR Today 04/20/2023 12:15 EDT Encounter for screening for human papillomavirus (HPV) Encounter for screening for malignant neoplasm of cervix Encounter for general adult medical examination without abnormal findings documented in this encounter Results * HUMAN PAPILLOMAVIRUS (HPV) DETECTION-HIGH RISK TYPES (04/20/2023 12:15 EDT) HPV other High Risk types, PCR Negative Negative 04/27/2023 16:59 EDT [facility] Comment:No E6 or E7 mRNA is detected from HPV types 16,18,31,33,35,39,45,51,52,56,58,59,66, and 68 by plastic top assembler mediated amplification. Pap Test CERVIX UTERI STRUCTURE / Unknown 04/20/2023 12:15 EDT 04/27/2023 8:49 EDT Kvng Masters MD MICROBIOLOGY - GENER AL ORDERABLES [facility] [address] [place] [address] * PAP TEST (04/20/2023 12:15 EDT) Specimens A. Cervix and/or Endocervix , ThinPrep Imaging System with Manual Evaluation 04/27/2023 16:59 T [facility] Specimen Adequacy Satisfactory for Evaluation - transformation zone component present 04/27/2023 16:59 EDT [facility] General Categorization Negative for intraepithelial lesion or malignancy 04/27/2023 16:59 EDT [facility] Descriptive Diagnosis Shift in jack present suggestive of bacterial vaginosis. 04/27/2023 16:59 T [facility] Attestation . 04/27/2023 16:59 [facility] at 1659 Clinical History See below 04/27/20 16:59 EDT [facility] HPV The result for the Human Papillomavirus (HPV) Detection-High Risk Types is Negative. No E6 or E7 mRNA is detected from HPV types 16,18,31,33,35,39 ,45,51,52,56,58,5 9,66, and 68 by plastic top assembler mediated amplification.Pallavi ting was performed on specimen [id number] and was resulted on 04/27/2023 1659 EDT by RONDA, LAB INSTRUMENT RESULTS IN 04/27/2023 16:59 EDT [facility] Performing Lab [facility] 04/27/2023 16:59 EDT [facility] Scanned Images 04/27/2023 16:59 EDT [facility] Pap Test CERVIX UTERI STRUCTURE / Unknown 04/20/2023 12:15 EDT 04/22/2023 9:12 EDT Kvng Masters MD PATHOLOGY ORDERABLES [facility] [address] [place] [address] documented in this encounter Visit Diagnoses Diagnosis Encounter for screening for human papillomavirus (HPV) Special screening examination for human papillomavirus (HPV) Encounter for screening for malignant neoplasm of cervix Screening for malignant neoplasm of the cervix Encounter for general adult medical examination without abnormal findings Unspecified general medical examination documented in this encounter Care Teams Assistant Spa Director Relationship Specialty Start Date End Date Mabel Bhakta MD [address] [place] [phone] PCP - General 02/16/17 documented as of this encounter
--- OUTSIDE RECORDS SUMMARY | 2024-06-04 20:59 | XMS_ITS | Encounter Summary ---
Author Organization [facility] Address [address] [place] [address] Care Team Providers Care Giver Name Role Phone Mabel Bhakta MD Primary Care Provider Encounter Details Date Type Department Care Team (Late st Contact Info) Description 09/19/2021 Lab Requisition [facility] Pathology & Laboratory Medicine - [address] [id number] Outr Resulting Lab, Provider Social History Tobacco Use Types Packs/Day Years [...] Procedure Name Priority Date/Time Associated Diagnosis Comments HEPATITIS B SURFACE ANTIGEN Routine 09/18/2021 17:00 EST documented in this encounter Results * HEPATITIS B SURFACE ANTIGEN (09/18/2021 17:00 EST) Hep B Surface Ag Negative Negative 09/21/2021 9:59 EST [facility] Blood VENOUS BLOOD / Unknown 09/18/2021 17:00 EST 09/20/2021 16:57 EST Provider Outr Resulting Lab CHEMISTRY & BLOOD GAS ORDERABLES [facility] [address] [place] [address] documented in this encounter Visit Diagnoses Not on filedocumented in this encounter Care Teams Giver Relationship Specialty Start Date End Date Mabel Bhakta MD [address] [place] [phone] PCP - General 02/16/17 documented as of this encounter
--- OUTSIDE RECORDS SUMMARY | 2024-06-04 20:59 | XMS_ITS | Referral Summary ---
Author Organization [facility] Address [address] [place] [address] Care Team Providers Care Automatic Nailing Machine Operator Name Role Phone Mabel Bhakta MD Primary Care Provider [phone] Social History Tobacco Use Types Packs/Day Years Used Date Smoking Tobacco: Never Assessed Interpersonal Safety Answer Date Record ed Physically Hurt Never 03/30/2020 Verbally Threaten Not on file 03/30/2020 Sex and Gender Information Value Date Recorded Sex Assigned at Not on file Gender Identity Not on file Sexual Orientation Not on file Plan of Treatment Not on file Care Teams Automatic Nailing Machine Operator Relationship Specialty Start Date End Date Mabel Bhakta MD [address] [facility] [address] [place] [phone] PCP - General 02/16/17
--- OUTSIDE RECORDS SUMMARY | 2024-06-04 21:00 | XMS_ITS | Encounter Summary ---
Author Organization [facility] Address [address] [place] [address] Care Team Providers Care Line Server Name Role Phone Unknown, Provider Primary Care Provider [phone] Encounter Details Date Type Department Care Team (Late st Contact Info) Description 07/15/2016 Results Only [facility] [phone] [facility] [address] [place], [place] [id number] Social History Tobacco Use Types Packs/Day Years Used Date Smoking Tobacco: Never Assessed Sex and Gender Information Value Date Recorded Sex Assigned at Not on file Gender Identity Not on file Sexual Orientation Not on file documented as of this encounter Plan of Treatment Not on file documented as of this encounter Procedures Procedure Name Priority Date/Time Associated Diagnosis Comments PAP TEST- RESULT ONLY Routine 07/15/2016 0:00 EST documented in this encounter Results * PAP TEST- RESULT ONLY (07/15/2016 0:00 EST) Pathology Report: CYTOPATHOLOGY REPORT Reports generated via electronic interface contain original data; however they are lacking the format of the original report. Caution should be taken when reading/interpreti ng unformatted reports. Name: ? CYRUS SAVAGE ? Accession #: ? [id number] ? : ? 1985 (Age: 30) ??F ?Collect Date: ? 07/15/2016 ? Location: ? [facility] ? Receive Date: ? 07/16/2016 ? Provider: HENRY REED M Copy to: NNAMDI GAMBOA PRICE LISTER ? Final Report SPECIMEN ADEQUACY ? Satisfactory for Evaluation - transformation zone component present GENERAL CATEGORIZATION ? Negative for Intraepithelial Lesion or Malignancy ?? Last Menstrual Period: 04/26/16 Menstrual/Pregnanc y Status: ?? Specimen/Source: ??Pap Test, Cervix, ThinPrep Imaging System with manual evaluation Document reviewed and electronically signed by: ? Nora Pampa, CT(ASCP) ? Report ??Date: 07/23/2016 10:38 HPV with Pap Test ? Date Ordered: ? 07/23/2016 ? Status: ?? Signed Out ?Date Complete: ? 07/27/2016 ? By: ??System Interface ? Date Reported: ? 07/27/2016 ? Interpretation RESULT: Negative for HPV. No E6 or E7 mRNA is detected from HPV types 16,18,31,33,35, 39,45,51,52,56,58, 59,66, and 68 by valuer mediated amplification. Comments Document reviewed and electronically signed by: ? System Interface ? Report date: 07/27/2016 By the signature above, the attending physician certifies that he/she has personally conducted a gross and/or microscopic examination of the described specimens and rendered or confirmed the above diagnosis. End of Report [facility] 07/15/2016 07/16/2016 Henry Reed [facility] PATHOLOGY ORDERABLES [facility] [address] [place] [address] documented in this encounter Visit Diagnoses Not on filedocumented in this encounter Care Teams Line Server Relationship Specialty Start Date End Date Unknown, Provider, PCP - General 12/08/09 02/15/17 documented as of this encounter
--- OUTSIDE RECORDS SUMMARY | 2024-06-04 21:00 | XMS_ITS | Encounter Summary ---
Author Organization [facility] Address [facility] [place] [address] Care Team Providers Care Pole Cutter Name Role Phone Anju Love JONI Primary Care Provider [phone]- [phone] Encounter Details Date Type Department Care Team (Latest Contact Info) Description 05/01/2013 10:00 AM EDT - 05/01/2013 11:59 PM EDT Hospital [place] [address] CLINIC, Tori Alonso MD [facility] OBSTETR[place] [address] Discharge Disposition: Home Social History Tobacco Use Types Packs/Day Years Used Date Smoking Tobacco: Every Day Cigarettes Smokeless Tobacco: Never Alcohol Use Standard Drinks/Week Comments No 0 (1 standard drink = 0.6 oz pur e alcohol) Comments Yes Sex and Gender Information Value Date Recorded Sex Assigned at Not on file Gender Identity Not on file Sexual Orientation Not on file documented as of this encounter Medications at Time of Discharge Medication Sig Dispensed Refills Start Date End Date buprenorphine-naloxone (SUBOXONE) 2-0.[address] 4 mg under the tongue daily. vitamin 27 & [id number]-IT 60 mg iron-1 mg tablet Take 1 tablet by mouth daily. documented as of this encounter Plan of Treatment Not on file documented as of this encounter Procedures Procedure Name Priority Date/Time Associated Diagnosis Comments US OB DETAILED MORPHOLOGY Routine 05/01/2013 11:02 AM EDT documented in this encounter Results * US OB Targeted Morphology (05/01/2013 11:02 AM EDT) Anatomical Region Laterality Modality Pelvis, Abdomen Ultrasound 05/01/2013 11:0 2 AM EDT Narrative 05/01/2013 11:05 AM EDT ?OBSTETRICS REPORT ? (Signed Final 05/01/2013 11:04 am) Patient Info ID: ? [id number] ? : ??[birth year] (27 yrs) Name: ? CYRUS SAVAGE ? Visit Date: 05/01/2013 10:59 am Performed By Performed By: ?Riddhi Nguyễn RDMS Attending: ? Charity CANO E ??Caro Referred By: ? HENRY REED CNM OB History : ??3 Living: ? 1 ? BMI: ?? 24.09 Service(s) Provided [facility] - Targeted Morphology - Genetics - ? [id number] Indications 2 vessel cord waqas 08/27 Evaluation Num Of Fetuses: ?1 Heart Rate: ??144 ?bpm Cardiac Activity: ??Observed, normal rhythm Presentation: ?Cephalic Placenta: ?Anterior P. Cord ?Within Normal Limits Insertion: Amniotic Fluid BREE FV: ?Normal -------- Biometry -------- BPD: ?57.2 ??mm ?G. Age: ?? 23w 3d OFD: ?75.5 ??mm HC: ?212.4 ??mm ?G. Age: ?? 23w 2d AC: ?184.5 ??mm ?G. Age: ?? 23w 2d FL: ? 39.7 ??mm ?G. Age: ?? 22w 5d HUM: ?38.7 ??mm ?G. Age: ?? 23w 5d CER: ?24.7 ??mm ?G. Age: ?? 22w 5d NB: ?7.5 ??mm CI: ?75.8 ??% ? 70 - 86 FL/HC: ? 18.7 ??% ? 19.2 - 20.8 HC/AC: ? 1.15 ?1.05 - 1.21 FL/BPD: ?69.4 ??% ? 71 - 87 FL/AC: ? 21.5 ??% ? 20 - 24 Est. FW: ? 563 ?? gm ? 1 lb 4 oz Gestational Age LMP: ? 25w 6d ?Date: ??11/01/12 ? WAQAS: ?? 08/08/13 U/S Today: ? 23w 1d ?WAQAS: ?? 08/27/13 Best: ?23w 1d ?? Det. By: ??Early ?WAQAS: ?? 08/27/13 ? Ultrasound ? (01/24/13) Targeted Anatomy Central Nervous System Calvarium: ?Within Normal Limits Intracranial: ? Within Normal Limits Lat. Ventricles: ?Within Normal Limits Cerebellum: ? Within Normal Limits Choroid Plexus: ? Within Normal Limits Cisterna Magna: ? Within Normal Limits Spine Cervical: ? Visualized Thoracic: ? Visualized Lumbar: ? Visualized Sacral: ? Visualized Head/Neck Face: ? Within Normal Limits Nuchal Fold: ?Within Normal Limits Thorax Four Chamber: ? Within Normal Limits Cardiac Motion: ? Normal Rhythm R Outflow Tract: ?Visualized L Outflow Tract: ?Visualized Cardiac [place]: ? Visualized Diaphragm: ?Visualized Abdomen Ventral Wall: ? Visualized Stomach: ?Visualized Lt Kidney: ?Visualized Rt Kidney: ?Visualized Bladder: ?Visualized Extremities Lt Humerus: ? Within Nomal Limits Rt Humerus: ? Within Normal Limits Lt Forearm: ? Within Normal Limits Rt Forearm: ? Within Normal Limits Lt Hand: ?Within Normal Limits Rt Hand: ?Within Normal Limits Lt Femur: ? Within Normal Limits Rt Femur: ? Within Normal Limits Lt Lower Leg: ? Within Normal Limits Rt Lower Leg: ? Within Normal Limits Lt Foot: ?Visualized Rt Foot: ?Visualized Other Umbilical Cord: ? 2 Vessel Cord Cord Insertion: ? WIthin Normal Limits Comment: ? Nasal Bone: Visualized Cervix Uterus Adnexa Left Ovary: ?Not visualized Right Ovary: ?? Not visualized Impression 2nd Trimester Single Umbilical Artery Summary Single intrauterine with a gestational age of 23w 1d based on outside ultrasound. Composite age based on the current ultrasound alone is 23w 1d. Amniotic fluid volume is normal. Current growth parameters are consistent indicating normal growth. Detailed evaluation was performed and no structural abnormalities are noted. ??Minor finding of a single umbilical artery (two vessel cord). ??Otherwise normal genetic sonogram. ??I ??viewed the images and agree with the above interpretation. Thank you for allowing us to participate in the care of CYRUS SAVAGE. Please do not hesitate to call if you have any questions. ? Tori Nash MD Electronically Signed Final Report ?? 05/01/2013 11:04 am Procedure Note Tori Nash MD - 05/01/2013 OBSTETRICS REPORT (Signed Final 05/01/2013 11:04 am) Patient Info ID: [id number] : [birth year] (27 yrs) Name: CYRUS SAVAGE Visit Date: 05/01/2013 10:59 am Performed By Performed By: Riddhi Nguyễn RDMS Attending: Tori Nash MD Referred By: HENRY REED [facility] OB History : 3 Livin BMI: 24.09 Service(s) Provided [facility] - Targeted Morphology - Genetics - [id number] Indications 2 vessel cord waqas 08/27 Evaluation Num Of Fetuses: 1 Heart Rate: 144 bpm Cardiac Activity: Observed, normal rhythm Presentation: Cephalic Placenta: Anterior P. Cord Within Normal Limits Insertion: Amniotic Fluid BREE FV: Normal -------- Biometry -------- BPD: 57.2 mm G. Age: 23w 3d OFD: 75.5 mm HC: 212.4 mm G. Age: 23w 2d AC: 184.5 mm G. Age: 23w 2d FL: 39.7 mm G. Age: 22w 5d HUM: 38.7 mm G. Age: 23w 5d CER: 24.7 mm G. Age: 22w 5d NB: 7.5 mm CI: 75.8 % 70 - 86 FL/HC: 18.7 % 19.2 - 20.8 HC/AC: 1.15 1.05 - 1.21 FL/BPD: 69.4 % 71 - 87 FL/AC: 21.5 % 20 - 24 Est. FW: 563 gm 1 lb 4 oz Gestational Age LMP: 25w 6d Date: 11/01/12 WAQAS: 08/08/13 U/S Today: 23w 1d WAQAS: 08/27/13 Best: 23w 1d Det. By: Early WAQAS: 08/27/13 Ultrasound (01/24/13) Targeted Anatomy Central Nervous System Calvarium: Within Normal Limits Intracranial: Within Normal Limits Lat. Ventricles: Within Normal Limits Cerebellum: Within Normal Limits Choroid Plexus: Within Normal Limits Cisterna Magna: Within Normal Limits Spine Cervical: Visualized Thoracic: Visualized Lumbar: Visualized Sacral: Visualized Head/Neck Face: Within Normal Limits Nuchal Fold: Within Normal Limits Thorax Four Chamber: Within Normal Limits Cardiac Motion: Normal Rhythm R Outflow Tract: Visualized L Outflow Tract: Visualized Cardiac [place]: Visualized Diaphragm: Visualized Abdomen Ventral Wall: Visualized Stomach: Visualized Lt Kidney: Visualized Rt Kidney: Visualized Bladder: Visualized Extremities Lt Humerus: Within Nomal Limits Rt Humerus: Within Normal Limits Lt Forearm: Within Normal Limits Rt Forearm: Within Normal Limits Lt Hand: Within Normal Limits Rt Hand: Within Normal Limits Lt Femur: Within Normal Limits Rt Femur: Within Normal Limits Lt Lower Leg: Within Normal Limits Rt Lower Leg: Within Normal Limits Lt Foot: Visualized Rt Foot: Visualized Other Umbilical Cord: 2 Vessel Cord Cord Insertion: WIthin Normal Limits Comment: Nasal Bone: Visualized Cervix Uterus Adnexa Left Ovary: Not visualized Right Ovary: Not visualized Impression 2nd Trimester Single Umbilical Artery Summary Single intrauterine with a gestational age of 23w 1d based on outside ultrasound. Composite age based on the current ultrasound alone is 23w 1d. Amniotic fluid volume is normal. Current growth parameters are consistent indicating normal growth. Detailed evaluation was performed and no structural abnormalities are noted. Minor finding of a single umbilical artery (two vessel cord). Otherwise normal genetic sonogram. I viewed the images and agree with the above interpretation. Thank you for allowing us to participate in the care of CYRUS SAVAGE. Please do not hesitate to call if you have any questions. Tori Nash MD Electronically Signed Final Report 05/01/2013 11:04 am [facility] ORDER[facility] documented in this encounter Visit Diagnoses Not on filedocumented in this encounter Care Teams Pole Cutter Relationship Specialty Start Date End Date Anju Love APRN PCP - General 04/24/13 10/24/16 documented as of this encounter
--- OUTSIDE RECORDS SUMMARY | 2024-06-04 21:00 | XMS_ITS | Encounter Summary ---
Author Organization [facility] Address [facility] [place] [address] Care Team Providers Care Molding Cutter Name Role Phone Anju Love Mark QUINONES Primary Care Provider [phone]- [phone] Reason for Visit * Reason Comments Ultrasound Encounter Details Date Type Department Care Team (Late st Contact Info) Description 05/01/2013 10:45 AM EDT Office Visit Obstetrics [place] [address] Mark Nash MD [facility] OBSTETRICS [place] [address] Single umbilical artery (Primary Dx) Social History Tobacco Use Types Packs/Day Years Used Date Smoking Tobacco: Every Day Cigarettes Smokeless Tobacco: Never Alcohol Use Standard Drinks/Week Comments No 0 (1 standard drink = 0.6 oz pur e alcohol) Comments Yes Sex and Gender Information Value Date Recorded Sex Assigned at Not on file Gender Identity Not on file Sexual Orientation Not on file documented as of this encounter Last Filed Vital Signs Vital Sign Reading Time Taken Comments Blood Pressure 118/56 05/01/2013 10:06 AM EDT Pulse - - Temperature - - Respiratory Rate - - Oxygen Saturation - - Inhaled Oxygen Concentration - - Weight 61.4 kg (135 lb 4.8 oz) 05/01/2013 10:06 AM EDT Height - - Body Mass Index - - documented in this encounter Progress Notes * Mark Nash MD - 05/01/2013 11:08 AM EDT Diagnosis/Maternal Medicine Consult Note Lisa Mcintyre is a 27 y.o. year old female who is at 23w1d gestation. She is seen in consultation at the request of Henry Blanc CNM for evaluation of anatomy due to single umbilical artery. She was seen today for maternal- medicine consultation, ultrasound evaluation and genetic counseling with Guadalupe Ferrara MS. Review of Systems Constitutional:feels well Movement: normal Contractions: none Leaking: None Bleeding: None There are no active problems to display for this patient. Past Medical History Diagnosis Date ??? H/O: substance abuse ??? Depression ??? Smoker Past Surgical History Procedure Date ??? section No family history on file. Social History Occupational History ??? Not on file. Social History Main Topics ??? Smoking status: Current Every Day Smoker Types: Cigarettes ??? Smokeless tobacco: Never Used ??? Alcohol Use: No ??? Drug Use: Yes Special: Narcotics Subutex treatement program ??? Sexually Active: Yes -- Male partner(s) OB History Grav Para Term Abortions TAB SAB Ect Mult Living 3 1 1 1 1 1 # Outc Date GA Lbr Antonio/2nd Wgt Sex Del Anes PTL Lv 1 CUR 2 TRM 2010 41w0d 02:00 2.92kg(6lb7oz) M LTCS Yes Comments: decreased FHR 3 SAB 2012 4w0d Current Outpatient Prescriptions Medication Status Sig Dispense Refill ??? buprenorphine-naloxone (SUBOXONE) 2-0.[address] 4 mg under the tongue daily. ? ? vitamin 27 & oggleqm-jvga-EF 60 mg iron-1 mg tablet Active Take 1 tablet by mouth daily. Allergies Allergen Reactions ??? Ceclor (Cefaclor) ??? Septra (Sulfamethoxazole-Trimethoprim) Ultrasound Date: 05/01/2013 Amniotic fluid volume normal Placenta anterior Presentation cephalic Growth appropriate for gestational age anatomy is remarkable for a single umbilical artery; the remainder of the anatomical survey was within normal limits. Physical Exam General: alert, well appearing, in no apparent distress, oriented to person, place and time HEENT: normocephalic, atraumatic Abdomen: Soft, nontender Extremities: no edema Neurologic:alert, oriented, normal speech, no focal findings or movement disorder noted Psychiatric: Affect is Appropriate. Assessment and Recommendations: 27 y.o. year old female at 23w1d weeks gestation with isolated single umbilical artery. Single umbilical artery has been associated with aneuploidy and anomalies of the genitourinary and cardiac systems but when isolated is has a low risk aneuploidy. There are no concurrent anomalies seen but ultrasound may not detect all anomalies. A single umbilical artery is seen in 1-2% ofeuploid fetuses. There may be an association between single umbilical artery and growth abnormalities. I recommend follow up ultrasounds for growth at 28 weeks and 32-34 weeks given the single umbilical artery; these follow-up ultrasounds may be performed locally, or should you prefer, we would be happy [place] [facility] [place] I appreciate the opportunity to be involved in this patients care, and am available if further questions should arise. 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
--- OUTSIDE RECORDS SUMMARY | 2024-06-04 21:00 | XMS_ITS | Encounter Summary ---
Author Organization [facility] Address [address] [place] [address] Care Team Providers Care Resort Manager Name Role Phone Unknown, Provider Primary Care Provider [phone] Encounter Details Date Type Department Care Team (Late st Contact Info) Description 2009 Results Only [facility] Laboratory Services - [facility] [place] [place] [address], [place] [address] Susanna Maldonado [place], [place] [id number] Social History Tobacco Use Types Packs/Day Years Used Date Smoking Tobacco: Never Assessed Sex and Gender Information Value Date Recorded Sex Assigned at Not on file Gender Identity Not on file Sexual Orientation Not on file documented as of this encounter Plan of Treatment Not on file documented as of this encounter Procedures Procedure Name Priority Date/Time Associated Diagnosis Comments CYTOPATHOLOGY Routine 2009 0:00 EDT documented in this encounter Results * CYTOPATHOLOGY (2009 0:00 EDT) Pathology Report: CYTOPATHOLOGY REPORT ? Reports generated via electronic interface contain original data; ? however they are lacking the format of the original report. ? Caution should be taken when reading/interpreti ng unformatted reports. ? Name: ? CYRUS SAVAGE ? Accession #: ? [id number] ? : ? 1985 (Age: 24) ??F ?Collect Date: ? 2009 ? Location: ? [facility] ? Receive Date: ? 12/08/2009 ? Provider: ?SUSANNA MALDONADO CNM ? Copy to: ? Specimen/Source: ?Pap Test, Cervix/Endocervix, ThinPrep Imaging System ? with manual evaluation ? Last Menstrual Period: ? 2/12/10 ? Menstrual/Pregnanc y Status: ? Other: ? HPVA - HPV testing requested if ASC-US on the current ThinPrep Pap test. ? SPECIMEN ADEQUACY ? Satisfactory for Evaluation ? - transformation zone component present ? GENERAL CATEGORIZATION ? Negative for Intraepithelial Lesion or Malignancy ? Document reviewed and electronically signed by: ? Deon NPennie Renee, CT(ASCP) ? Report Date: ??12/12/2009 13:56 ? End of Report ? [facility] 2009 12/08/2009 Susanna Maldonado CNM PATHOLOGY ORDERABLES [facility] [address] [place] [address] documented in this encounter Visit Diagnoses Not on filedocumented in this encounter Care Teams Resort Manager Relationship Specialty Start Date End Date Unknown, Provider, PCP - General 12/08/09 02/15/17 documented as of this encounter
--- OUTSIDE RECORDS SUMMARY | 2024-06-04 21:00 | XMS_ITS | Encounter Summary ---
Author Organization [facility] Address [address] [place] [address] Care Team Providers Care Esthetician/Skin Therapist Name Role Phone Unknown, Provider Primary Care Provider Encounter Details Date Type Department Care Team (Late st Contact Info) Description 11/11/2010 Results Only [facility] Laboratory Services - [facility] ([facility] [place]) [address], [place] [id number] Nnamdi Gamboa, [address] [place] [address] Social History Tobacco Use Types Packs/Day Years Used Date Smoking Tobacco: Never Assessed Sex and Gender Information Value Date Recorded Sex Assigned at Not on file Gender Identity Not on file Sexual Orientation Not on file documented as of this encounter Plan of Treatment Not on file documented as of this encounter Procedures Procedure Name Priority Date/Time Associated Diagnosis Comments CYTOPATHOLOGY Routine 11/11/2010 0:00 EDT documented in this encounter Results * CYTOPATHOLOGY (11/11/2010 0:00 EDT) Pathology Report: CYTOPATHOLOGY REPORT ? Reports generated via electronic interface contain original data; ? however they are lacking the format of the original report. ? Caution should be taken when reading/interpreti ng unformatted reports. ? Name: ? CYRUS SAVAGE ? Accession #: ? [id number] ? : ? 1985 (Age: 24) ??F ?Collect Date: ? 11/11/2010 ? Location: ? [facility] ? Receive Date: ? 11/13/2010 ? Provider: ?NNAMDI GAMBOA REFRIGERATION ENGINE OPERATOR ? Copy to: ? Specimen/Source: ?Pap Test, Cervix/Endocervix, ThinPrep Imaging System ? with manual evaluation ? Last Menstrual Period: ? 03/07/11 ? Other: ? Additional clinical information: Delivered infant 11/30/10 ? SPECIMEN ADEQUACY ? Satisfactory for Evaluation ? - transformation zone component present ? GENERAL CATEGORIZATION ? Negative for Intraepithelial Lesion or Malignancy ? Document reviewed and electronically signed by: ? Lynan Ruddy, CT(ASCP) ? Report Date: ??11/17/2010 09:09 ? End of Report ? [facility] 11/11/2010 11/13/2010 Nnamdi Gamboa NP PATHOLOGY ORDERABLES [facility] [address] [place] [address] documented in this encounter Visit Diagnoses Not on filedocumented in this encounter Care Teams Esthetician/Skin Therapist Relationship Specialty Start Date End Date Unknown, Provider, PCP - General 12/08/09 02/15/17 documented as of this encounter
--- OUTSIDE RECORDS SUMMARY | 2024-06-04 21:00 | XMS_ITS | Encounter Summary ---
Author Organization [facility] Address [address] [place] [address] Care Team Providers Care Rn Faculty Name Role Phone Unknown, Provider Primary Care Provider [phone] Encounter Details Date Type Department Care Team (Late st Contact Info) Description 12/27/2012 Results Only [facility] [phone] Kristy Barnett, [facility] [address] [facility] [facility] [place] [address] Social History Tobacco Use Types Packs/Day Years [...] Diagnosis Comments PAP TEST- RESULT ONLY Routine 12/27/2012 0:00 EDT documented in this encounter Results * PAP TEST- RESULT ONLY (12/27/2012 0:00 EDT) Pathology Report: CYTOPATHOLOGY REPORT Reports generated via electronic interface contain original data; however they are lacking the format of the original report. Caution should be taken when reading/interpreti ng unformatted reports. Name: ? CYRUS SAVAGE ? Accession #: ? [id number] : ? 1985 (Age: 27) ??F ?Collect Date: ? 12/27/2012 Location: ? [facility] ? Receive Date: ? 12/28/2012 Provider: ?KRISTY BARNETT CNM Copy to: ?NNAMDI GAMBOA ROLL SHOP SUPERVISOR ? Specimen/Source: ?Pap Test, Cervix/Endocervix, ThinPrep Imaging System with manual evaluation Last Menstrual Period: ? 11/01/12 Menstrual/Pregnanc y Status: ? SPECIMEN ADEQUACY ? Satisfactory for Evaluation - transformation zone component present GENERAL CATEGORIZATION ? Negative for Intraepithelial Lesion or Malignancy ? Document reviewed and electronically signed by: ? Tashia Pabon, CT(ASCP) ? Report Date: ??01/02/2013 12:32 End of Report [facility] 12/27/2012 12/28/2012 Kristy Barnett CNM PATHOLOGY ORDERAB LES [facility] [address] [place] [address] documented in this encounter Visit Diagnoses Not on filedocumented in this encounter Care Teams Rn Faculty Relationship Specialty Start Date End Date Unknown, Provider, PCP - General 12/08/09 02/15/17 documented as of this encounter
--- OUTSIDE RECORDS SUMMARY | 2024-06-04 21:00 | XMS_ITS | Encounter Summary ---
Author Organization [facility] Address [facility] [place] [address] Care Team Providers Care Hazardous Substances Engineer Name Role Phone Sujata Loveromero Valle APRN Primary Care Provider [phone] Reason for Visit * Reason Comments Ultrasound Finding Encounter Details Date Type Department Care Team (Late st Contact Info) Description 05/01/2013 9:30 AM EDT Office Visit Obstetrics [place] [address] Guadalupe Ferrara, MS [facility] DR OBSTETRICS & [place] [address] Other known or suspected abnormality, not elsewhere classified, affecting management of mother, antepartum condition or complication (Primary Dx) Social History Tobacco Use Types [...] Sign Reading Time Taken Comments Blood Pressure - - Pulse - - Temperature - - Respiratory Rate - - Oxygen Saturation - - Inhaled Oxygen Concentration - - Weight 61.7 kg (136 lb) 05/01/2013 11:24 AM EDT Height 158.8 cm (5' 2.5) 05/01/2013 11:24 AM ED T Body Mass Index 24.48 05/01/2013 11:24 AM EDT documented in this encounter Progress Notes * Guadalupe Ferrara MS - 05/01/2013 1:21 PM EDT At the time of this visit, Lisa was 23 weeks 1 days by early ultrasound dating. Lisa was seen for genetic counseling prior to her ultrasound. We discussed the followin. Two-Vessel Cord (Single Umbilical Artery - SUA): SUA is seen in 1% of ponce pregnancies and 5% of twin gestations. Other anomalies have been identified in up to 46% of fetuses with SUA; cardiac and renal anomalies are most common. The identification of anomalies in addition to the SUA puts the fetus at a significant risk for a chromosomal abnormality. Several studies have documented an increased risk of intrauterine growth restriction and delivery among fetuses with isolated SUA.A follow-up ultrasound in the third trimester may be indicated to assess growth. Lisa had a normal quad screen, which reduced her risk for Down syndrome to 1:6940 and for trisomy 18 to 1:10,000. After our discussion, she declined additional testing. 2. Cystic Fibrosis: Negative for 23 mutation panel. documented in this encounter Miscellaneous Notes * Miscellaneous - Provider, Scanning - 06/01/2013 2:28 PM EDT documented in this encounter Plan of Treatment Not on file documented as of this encounter Visit Diagnoses Diagnosis Other known or suspected abnormality, not elsewhere classified, affecting management of mother, antepartum condition or complication- Primary documented in this encounter Care Teams Hazardous Substances Engineer Relationship Specialty Start Date End Date Anju Love APRN PCP - General 04/24/13 10/24/16 documented as of this encounter
--- OUTSIDE RECORDS SUMMARY | 2024-06-04 21:00 | XMS_ITS | Encounter Summary ---
Author Organization [facility] [place] [address] Care Team Providers Care Funeral Assistant Name Role Phone Unknown Primary Care Provider Unavailabl e Encounter Details Date Type Department Care Team (Late st Contact Info) Description 12/31/2016 Orders Only Obstetrics [place] [id number] Elizabeth Ochoa [facility] OBSTETRICS & [place] [address] Ultrasound for screening for growth restriction Social History Tobacco Use Types Packs/Day Years [...] on file documented as of this encounter Results * US OB Detailed Morphology (01/07/2017 2:50 PM EDT) Anatomical Region Laterality Modality Pelvis, Abdomen Ultrasound 01/07/2017 2:44 PM EDT Impressions 01/07/2017 3:28 PM EDT 3rd Trimester Summary Single intrauterine with a gestational age of 33w6d based on Early Ultrasound. ?Composite age based on the current ultrasound alone is 31w 5d. Estimated weight corresponds to the 10th percentile for 33w 6d. The abdominal circumference is 9th%tile. Normal U/A Doppler, performed due to abdominal circumference being 8th%tile. Amniotic fluid volume is Appropriate for gestational age, BREE = 7.5 cm, MVP = 2.92 cm BPP is 6/8 (breathing not observed). Anatomical survey is limited due to the late gestational age. I ??viewed the images and agree with the above interpretation. ? Terri Rosado MD Electronically Signed Corrected Final Report ??01/07/2017 03:37 pm Narrative 01/07/2017 3:28 PM EDT OBSTETRICS REPORT ?(Corrected Final 01/07/2017 03:37 ? pm) PATIENT INFO: ID #: ? [id number] ?: ??[birth year] (31 yrs) Name: ? CYRUS Armin JANETTE ?Visit Date: 01/07/2017 02:44 pm PERFORMED BY: Performed By: ? Rosemarie MELENDEZ, ??Marina Attending: ?Ashlee CANO, Terri Campos Referred By: ?CASIMIRO CHINCHILLA MD Location: ? [place] SERVICE(S) PROVIDED: ??[facility] - Detailed Morphology - [id number] ? [id number] ??UOBUA - Umbilical Artery Doppler - [id number] ?[id number] ??UBPP - Biophysical Profile - [id number] ? [id number] INDICATIONS: ??Question of growth restriction OB HISTORY: Blood Type: ?? A+ ? Height: ??5'2 ?? Weight: ?? 136 ? BMI: ??24.87 : ?5 ? Term: ?? 2 TOP: ?2 ?Living: ??2 EVALUATION: Num Of Fetuses: ? 1 Heart ? 122 Rate(bpm): Cardiac Activity: ?? Observed, normal rhythm Presentation: ? Cephalic Placenta: ? Posterior Amniotic Fluid BREE FV: ?Appropriate for gestational age BREE Sum: ? 7.5 ? cm ? Larg Pckt: ?2.92 ??cm RUQ: ?? 2.92 ?cm ?LUQ: ?? 2.31 ?? cm RLQ: ?? 2.27 ?cm ?LLQ: ?? 0.0 ?cm BIOPHYSICAL EVALUATION: Amniotic F.V: ?? Within normal limits ? F. Tone: ??Observed F. Movement: ?Observed ? Score: ??68 F. Breathing: ?? Not Observed --------- BIOMETRY: --------- BPD: ?81.5 ??mm ? G.Age: ?? 32w 5d ?18 ??% OFD: ? 105.8 ??mm HC: ?306.1 ??mm ? G.Age: ?? 34w 1d ?21 ??% AC: ?279.1 ??mm ? G.Age: ?? 32w 0d ? 9 ??% FL: ? 52.5 ??mm ? G.Age: ?? 28w 0d ? < 3 ??% HUM: ?47.9 ??mm ? G.Age: ?? 28w 0d ? < 5 ??% LV: ?6.7 ??mm RIGHT ULN: ?44.2 ??mm ? G.Age: ?? 28w 3d ? < 5 ??% TIB: ?45.0 ??mm ? G.Age: ?? 27w 4d ? < 5 ??% RAD: ?37.9 ??mm ? G.Age: ?? 26w 3d ? < 5 ??% FIB: ?43.3 ??mm ? G.Age: ?? 26w 5d ? < 5 ??% LEFT CI: ?77.0 ??% ? 70 - 86 FL/HC: ? 17.2 ??% ? 19.4 - 21.8 HC/AC: ? 1.10 ?0.96 - 1.11 FL/BPD: ?64.4 ??% ? 71 - 87 FL/AC: ? 18.8 ??% ? 20 - Est. FW: ?1681 ?? gm ?? 3 lb 11 oz ? 10 ??% GESTATIONAL AGE: U/S Today: ? 31w 5d ?WAQAS: ?? 03/06/17 Best: ?33w 6d ?? Det. By: ??Early ?WAQAS: ?? 02/19/17 ? Ultrasound ? (07/20/16) TARGETED ANATOMY: Central Nervous System Calvarium: ?Within Normal Limits Intracranial: ? Within Normal Limits Cavum: ?Within Normal Limits Lat. Ventricles: ?Within Normal Limits Cerebellum: ? Not visualized due to Choroid Plexus: ? Within Normal Limits Cisterna Magna: ? Not visualized due to Spine Cervical: ? Visualized Thoracic: ? Visualized Lumbar: ? Limited Views Sacral: ? Limited Views Head/Neck Face: ? Within Normal Limits Lips: ? Within Normal Limits Nuchal Fold: ?Not evaluated at this Eyes: ? Normal ??lens / orbits Neck: ? Within Normal Limits Profile: ?Visualized Thorax Thoracic Contour: ? Ribs appear normal Lungs: ?Visualized Four Chamber: ? Within Normal Limits Cardiac Motion: ? Normal Rhythm R Outflow Tract: ?Visualized L Outflow Tract: ?Visualized Aortic Arch: ?Visualized Cardiac [place]: ? Visualized 3 Vessel View: ?Visualized Diaphragm: ?Visualized Abdomen Ventral Wall: ? Not well seen due to Stomach: ?Visualized Situs: ?Normal Liver: ?Visualized Lt Kidney: ?Visualized Rt Kidney: ?Visualized Bladder: ?Visualized Bowel: ?Visualized Extremities Lt Humerus: ? Within Nomal Limits Rt Humerus: ? Within Normal Limits Lt Forearm: ? Within Normal Limits Rt Forearm: ? Within Normal Limits Lt Hand: ?Limited Views Rt Hand: ?Limited Views Lt Femur: ? Within Normal Limits Rt Femur: ? Within Normal Limits Lt Lower Leg: ? Within Normal Limits Rt Lower Leg: ? Within Normal Limits Lt Foot: ?Visualized Rt Foot: ?Visualized Other Umbilical Cord: ? 3 vessel cord Cord Insertion: ? Not well seen due to Comment: ? Nasal Bone: Not well seen due to ?postiion DOPPLER - VESSELS: Umbilical Artery ??S/D ? %tile ? RI ?%tile ? PSV ?ADFV ?RDFV ?(cm/s) 2.82 ?63.0 ??0.64 ?68.0 ?20.55 ?No ?No CERVIX UTERUS ADNEXA: Left Ovary Not visualized Right Ovary Size(cm) ? 4.13 ?? x ?? 3.93 ?? x ??1.49 ?Vol(ml): 12.7 Visualized Procedure Note Terri Rosado MD - 01/07/2017 OBSTETRICS REPORT (Corrected Final 01/07/2017 03:37 pm) PATIENT INFO: ID #: [id number] : [birth year] (31 yrs) Name: CYRUS SAVAGE Visit Date: 01/07/2017 02:44 pm PERFORMED BY: Performed By: Marina Houston RDMS Attending: Terri Rosado MD Referred By: CASIMIRO CHINCHILLA MD Location: [place] SERVICE(S) PROVIDED: [facility] - Detailed Morphology - [id number] UOBUA - Umbilical Artery Doppler - [id number] UBPP - Biophysical Profile - [id number] INDICATIONS: Question of growth restriction OB HISTORY: Blood Type: A+ Height: 5'2 Weight: 136 BMI: 24.87 : 5 Term: 2 TOP: 2 [place]in EVALUATION: Num Of Fetuses: 1 Heart 122 Rate(bpm): Cardiac Activity: Observed, normal rhythm Presentation: Cephalic Placenta: Posterior Amniotic Fluid BREE FV: Appropriate for gestational age BREE Sum: 7.5 cm Larg Pckt: 2.92 cm RUQ: 2.92 cm LUQ: 2.31 cm RLQ: 2.27 cm LLQ: 0.0 cm BIOPHYSICAL EVALUATION: Amniotic F.V: Within normal limits F. Tone: Observed F. Movement: Observed Score: 02/03 F. Breathing: Not Observed --------- BIOMETRY: --------- BPD: 81.5 mm G.Age: 32w 5d 18 % OFD: 105.8 mm HC: 306.1 mm G.Age: 34w 1d 21 % AC: 279.1 mm G.Age: 32w 0d 9 % FL: 52.5 mm G.Age: 28w 0d < 3 % HUM: 47.9 mm G.Age: 28w 0d < 5 % LV: 6.7 mm RIGHT ULN: 44.2 mm G.Age: 28w 3d < 5 % TIB: 45.0 mm G.Age: 27w 4d < 5 % RAD: 37.9 mm G.Age: 26w 3d < 5 % FIB: 43.3 mm G.Age: 26w 5d < 5 % LEFT CI: 77.0 % 70 - 86 FL/HC: 17.2 % 19.4 - 21.8 HC/AC: 1.10 0.96 - 1.11 FL/BPD: 64.4 % 71 - 87 FL/AC: 18.8 % 20 - 24 Est. FW: 1681 gm 3 lb 11 oz 10 % GESTATIONAL AGE: U/S Today: 31w 5d WAQAS: 03/06/17 Best: 33w 6d Det. By: Early WAQAS: 02/19/17 Ultrasound (07/20/16) TARGETED ANATOMY: Central Nervous System Calvarium: Within Normal Limits Intracranial: Within Normal Limits Cavum: Within Normal Limits Lat. Ventricles: Within Normal Limits Cerebellum: Not visualized due to Choroid Plexus: Within Normal Limits Cisterna Magna: Not visualized due to Spine Cervical: Visualized Thoracic: Visualized Lumbar: Limited Views Sacral: Limited Views Head/Neck Face: Within Normal Limits Lips: Within Normal Limits Nuchal Fold: Not evaluated at this Eyes: Normal lens / orbits Neck: Within Normal Limits Profile: Visualized Thorax Thoracic Contour: Ribs appear normal Lungs: Visualized Four Chamber: Within Normal Limits Cardiac Motion: Normal Rhythm R Outflow Tract: Visualized L Outflow Tract: Visualized Aortic Arch: Visualized Cardiac [place]: Visualized 3 Vessel View: Visualized Diaphragm: Visualized Abdomen Ventral Wall: Not well seen due to Stomach: Visualized Situs: Normal Liver: Visualized Lt Kidney: Visualized Rt Kidney: Visualized Bladder: Visualized Bowel: Visualized Extremities Lt Humerus: Within Nomal Limits Rt Humerus: Within Normal Limits Lt Forearm: Within Normal Limits Rt Forearm: Within Normal Limits Lt Hand: Limited Views Rt Hand: Limited Views Lt Femur: Within Normal Limits Rt Femur: Within Normal Limits Lt Lower Leg: Within Normal Limits Rt Lower Leg: Within Normal Limits Lt Foot: Visualized Rt Foot: Visualized Other Umbilical Cord: 3 vessel cord Cord Insertion: Not well seen due to Comment: Nasal Bone: Not well seen due to postiion DOPPLER - VESSELS: Umbilical Artery S/D %tile RI %tile PSV ADFV RDFV (cm/s) 2.82 63.0 0.64 68.0 20.55 No No CERVIX UTERUS ADNEXA: Left Ovary Not visualized Right Ovary Size(cm) 4.13 x 3.93 x 1.49 Vol(ml): 12.7 Visualized IMPRESSION 3rd Trimester Summary Single intrauterine with a gestational age of 33w6d based on Early Ultrasound. Composite age based on the current ultrasound alone is 31w 5d. Estimated weight corresponds to the 10th percentile for 33w 6d. The abdominal circumference is 9th%tile. Normal U/A Doppler, performed due to abdominal circumference being 8th%tile. Amniotic fluid volume is Appropriate for gestational age, BREE = 7.5 cm, MVP = 2.92 cm BPP is 6/8 (breathing not observed). Anatomical survey is limited due to the late gestational age. I viewed the images and agree with the above interpretation. Terri Rosado MD Electronically Signed Corrected Final Report 01/07/2017 03:37 pm Terri Rosado MD IMG US OB ORDERABLES documented in this encounter Visit Diagnoses Diagnosis Ultrasound for screening for growth restriction screening for growth retardation using ultrasonics Ultrasound for screening for growth restriction screening for growth retardation using ultrasonics documented in this encounter Care Teams Funeral Assistant Relationship Specialty Start Date End Date Unknown None PCP - General 10/25/16 01/06/17 documented as of this encounter
--- OUTSIDE RECORDS SUMMARY | 2024-06-04 21:00 | XMS_ITS | Clinical Summary ---
Author Organization [facility] Address [facility] [place] [address] Care Team Providers Care New Accounts Banking Representative Name Role Phone None Primary Care Provider Unavailabl e Allergies Active Allergy Reactions Criticality Noted Date Comments Cefaclor 05/01/2013 Sulfamethoxazole-Trimethoprim 2012 Medications Medication Sig Dispensed Refills Start Date End Date Status buprenorphine-naloxone (SUBOXONE) 2-0.[address] 4 mg under the tongue daily. Active vitamin 27 & [id number]-DN 60 mg iron-1 mg tablet Take 1 tablet by mouth daily. Active Active Problems No known active problems Resolved Problems Problem Noted Date Diagnosed Date Resolved Date Supervision of high risk pre gnancy in third trimester 01/12/2017 11/04/2017 Overview (01/12/2017): Team/Centering Delivery Plan Referring provider FIRST TRIMESTER NOB labs Aneuploidy screen CF screen Other: early GCT, aspirin, TSH BAND SHOVER/Behavioral Health consult/ATP MFM/genetics SECOND TRIMESTER 18-20 week US scan Tubal paper signed THIRD TRIMESTER 28 week labs testing SBIRT GBS 36 week STD labs Contraception Tubal papers signed Infant nutrition Child education preferences Linking Machine Operator/ issues/ Circumcision Planning IMMUNIZATIONS Influenza TDAP : Varicella, MMR, Pneumovax *Aspirin High risk >= 3 Low risk TSH History preeclampsia Multifetal gestation Chronic hypertension Pre-gestational diabetes Renal disease Systemic lupus AntiPhospholipidAntibodySyndrome Nulliparity Age >= 35 years >10 year interval between BMI > 30 kg/m2 ethnicity Mother or sister with preeclampsia Previous with IUGR Symptoms Personal history of thyroid disease or TPO antibodies Family history Goiter Autoimmune disease Type I diabetes Infertility or recurrent miscarriage BMI >40 kg/m2 Immigrant from areas of moderate to severe iodine deficiency Social History Tobacco Use Types Packs/Day Years Used Date Smoking Tobacco: Every Day Cigarettes Smokeless Tobacco: Never Alcohol Use Standard Drinks/Week Comments No 0 (1 standard drink = 0.6 oz pur e alcohol) Sex and Gender Information Value Date Recorded Sex Assigned at Not on file Gender Identity Not on file Sexual Orientation Not on file Last Filed Vital Signs Vital Sign Reading Time Taken Comments Blood Pressure 110/57 01/07/2017 3:14 PM EDT Pulse - - Temperature - - Respiratory Rate - - Oxygen Saturation - - Inhaled Oxygen Concentration - - Weight 66.1 kg (145 lb 12.8 oz) 01/07/2017 3:14 PM EDT Height 158.8 cm (5' 2.5) 05/01/2013 11 :24 AM EDT Body Mass Index 26.24 05/01/2013 11:24 AM EDT Plan of Treatment Health Maintenance Due Date Last Done Comments HIV screen 12/04/2005 Hepatitis C Screening 12/04/2005 Lipid Screening 12/04/2005 Hepatitis B vaccine (0-59 yrs) (1) 12/04/2006 Tetanus/Diphtheria/Pertussis Vaccines (1 - Tdap) 12/04 HPV test 12/04/2017 PAP Smear 12/04/2017 Covid-19 Vaccine (1 - 2022- season) 2024 Influenza (Flu) vaccine (1 o f 1 - Influenza standard series) 04/29/2024 Care Teams New Accounts Banking Representative Relationship Specialty Start Date End Date None None PCP - General 01/07/17
--- OUTSIDE RECORDS SUMMARY | 2024-06-04 21:00 | XMS_ITS | Encounter Summary ---
Author Organization [facility] Address [facility] [place] [address] Care Team Providers Care Repair Table Operator Name Role Phone None Primary Care Provider Unavailabl e Encounter Details Date Type Department Care Team (Latest Contact Info) Description 01/07/2017 1:45 PM EDT - 01/07/2017 11:59 PM EDT Hospital [place] [phone] Terri Rosado MD [facility] OBSTET[place]ICS [place] [address] Ultrasound for screening for growth restriction Discharge Disposition: Home Social History Tobacco Use [...] under the tongue daily. vitamin 27 & hyszojv-ftfc-WL 60 mg iron-1 mg tablet Take 1 tablet by mouth daily. documented as of this encounter Plan of Treatment Not on file documented as of this encounter Procedures Procedure Name Priority Date/Time Associated Diagnosis Comments US OB DETAILED MORPHOLOGY Routine 01/07/2017 2:50 PM EDT Ultrasound for screening for growth restriction documented in this encounter Results * US OB Detailed [...] ? pm) PATIENT INFO: ID #: ? [id number] ?: ??[birth year] (31 yrs) Name: ? CYRUS SAVAGE ?Visit Date: 01/07/2017 02:44 pm PERFORMED BY: Performed By: ? Rosemarie MELENDEZ, ??Marina Attending: ?Ashlee CANO, Terri Campos Referred By: ?CASIMIRO CHINCHILLA MD Location: ? [place] SERVICE(S) PROVIDED: ??[facility] - Detailed Morphology - [id number] ? [id number] ??UOBUA - Umbilical Artery Doppler - [id number] ?[id number] ??UBPP - Biophysical Profile - [id number] ? [id number] INDICATIONS: ??Question of growth restriction OB HISTORY: [...] Tone: ??Observed F. Movement: ?Observed ? Score: ??02/03 F. Breathing: ?? Not Observed --------- BIOMETRY: [...] - 87 FL/AC: ? 18.8 ??% ? - Est. FW: ?1681 ?? gm ?? [...] Outflow Tract: ?Visualized Aortic Arch: ?Visualized Cardiac [place]: ? Visualized 3 Vessel View: ?Visualized Diaphragm: [...] 01/07/2017 03:37 pm) PATIENT INFO: ID #: [id number] : [birth year] (31 yrs) Name: CYRUS SAVAGE Visit Date: 01/07/2017 02:44 pm PERFORMED BY: Performed By: Marina Houston RDMS Attending: Terri Rosado MD Referred By: CASIMIRO CHINCHILLA MD Location: [place] SERVICE(S) PROVIDED: [facility] - Detailed Morphology - [id number] UOBUA - Umbilical Artery Doppler - [id number] UBPP - Biophysical Profile - [id number] INDICATIONS: Question of growth restriction OB HISTORY: [...] F. Tone: Observed F. Movement: Observed Score: 6/8 F. Breathing: Not Observed --------- BIOMETRY: --------- [...] Outflow Tract: Visualized Aortic Arch: Visualized Cardiac [place]: Visualized 3 Vessel View: Visualized Diaphragm: Visualized [...] ultrasonics documented in this encounter Care Teams Repair Table Operator Relationship Specialty Start Date End Date None None PCP - General 01/07/17 documented as of this encounter
--- OUTSIDE RECORDS SUMMARY | 2024-06-04 21:00 | XMS_ITS | Encounter Summary ---
Author Organization [facility] Address [facility] [place] [address] Care Team Providers Care Pipefitter Name Role Phone None Primary Care Provider Unavailabl e Reason for Visit * Reason Comments Advice Only * Consultation (Routine) - Closed Specialty Diagnoses / Procedures Referred By Contac t Referred To Contact Maternal and Medicine / Obstetrics and Gynecology Diagnoses US results measuring less than her gestational age Procedures US, M Shelia Patino MD [address] [place] [address] [facility] [address] [place] [address] Referral ID Status Reason Start Date Expiration Date Visits Re quested Visits Authorized [id number] Closed 12/31/2016 12/31/2017 1 1 Encounter Details Date Type Department Care Team (Latest Contact Info) Description 01/07/2017 2:45 PM EDT Procedure visit Obstetrics [place] [address] Terri Rosado MD [facility] DR OBSTETRICS [place] [address] IUGR (intrauterine growth restriction) affecting care of mother, third trimester, not applicable or unspecified fetus; Opioid use disorder, mild, in sustained remission; Supervision of high risk in third trimester Social History Tobacco Use Types Packs/Day Years [...] 12.8 oz) 01/07/2017 3:14 PM EDT Height - - Body Mass Index 26.24 05/01/2013 11:24 AM EDT documented in this encounter Progress Notes * Terri Rosado MD - 01/07/2017 2:45 PM EDT Maternal Medicine Consult Note Lisa Mcintyre is a 31 y.o. with an WAQAS of 02/19/17 who is at 33w6d gestation by ultrasound. She is seen in consultation at the request of Shelia Patino M.D. for evaluation of possible growth restriction. She was seen today for maternal- medicine consultation and ultrasound evaluation. The patient reports that this has been an uncomplicated to date. She had aneuploidyscreening with risk for Down syndrome 1:16,000. Maternal serum alpha- fetoprotein protein was 1.61 multiples of the median. She currently reports feeling well. She has had no leaking, bleeding, contractions and pain. She reports good movement. Record Review No additional issues Past Medical History: Diagnosis Date ??? Depression ??? H/O: substance abuse ??? Opioid use disorder, mild, in sustained remission ??? Smoker Past Surgical History: Procedure Laterality Date ??? SECTION Obstetric History T2 L1 SAB0 TAB0 Ectopic0 Multiple0 Live Births0 # Outcome Date GA Lbr Antonio/2nd Weight Sex Delivery Anes PTL Lv 5 Current 4 2013 4w0d 3 Term 2012 39w0d LWR SEG BAER 2 2011 8w0d 1 Term 2009 41w0d 02:00 2.92 kg (6 lb 7 oz) M CS-LTranv SANDEE Social: No illicit substance use or alcohol She has cut considerably down on tobacco use. She and her partner are quitting smoking together Current Outpatient Prescriptions Medication Sig Dispense Refill ??? buprenorphine-naloxone (SUBOXONE) 2-0.[address] 4 mg under the tongue daily. ? ? vitamin 27 & fxmrayq-excx-UW 60 mg iron-1 mg tablet Take 1 tablet by mouth daily. No current facility-administered medications for this visit. Allergies Allergen Reactions ??? Ceclor [Cefaclor] ??? Septra [Sulfamethoxazole-Trimethoprim] Review of Systems Constitutional: generally well Eyes: negative Ears Nose Throat:negative Respiratory: no cough, shortness of breath, or wheezing Cardiac: negative Gastrointestinal: Normal bowel movements, denies hematochezia, melena or pain. Genitourinary: Negative for dysuria Musculoskeletal: negative Skin: negative Psychiatric: Negative for anxiety, depression Endocrine:negative Contractions: none Leaking: none Bleeding: none Ultrasound Growth small for gestational age EGA 31 5/7 weeks EFW 1681 grams 10th percentile Amniotic fluid volume normal Placenta posterior Presentation cephalic Morphology: No structural abnormality Umbilical artery Doppler normal Biophysical profile 02/03 with 2 points off for breathing Physical Exam Vitals: 01/07/17 1514 BP: 110/57 General: alert, well appearing, in no apparent distress HEENT: normocephalic, atraumatic Extremities: normal Neurologic:alert, oriented, normal speech Abdomen: abdomen is soft without significant tenderness Psychiatric: affect is appropriate. Uterine Size: consistent with dates Assessment and Recommendations: 31 y.o. at 33w6d weeks gestation. growth restriction with reassuring testing. The etiology is most likely uteroplacental insufficiency. I recommend close surveillance with twice weekly nonstress tests and weekly umbilicalartery Doppler study with amniotic fluid volume. Her next growth scan should be in 2 to 3 weeks. Ifthere continues to be growth and the testing is reassuring, it would be preferable to achieve 38 weeks. I asked her to continue to use as least tobacco as possible. Will do nonstress test today I appreciate the opportunity to be involved in this patient's care and am available if further questions should arise. Terri Rosado MD 01/07/2017 Cc: Shelia Patino M.D. documented in this encounter Plan of Treatment Not on file documented as of this encounter Visit Diagnoses Diagnosis IUGR (intrauterine growth restriction) affecting care of mother, third trimester, not applicable or unspecified fetus Opioid use disorder, mild, in sustained remission Supervision of high risk in third trimester Unspecified high-risk documented in this encounter Care Teams Pipefitter Relationship Specialty Start Date End Date None None PCP - General 01/07/17 documented as of this encounter
--- NOTE | 2024-06-04 21:25 | ED.GENADUL_ITS ---
Discharge Plan Disposition Patient Disposition: Home Condition: Stable Discharge Details Clinical Impression: Fever, Otitis media, Right otitis media with spontaneous rupture of eardrum Primary Care Provider: Kvng Masters ED Provider: Jeremy Guardado Home Meds and New Rx's Prescriptions: New amoxicillin-pot clavulanate 875-125 mg tablet 1 tab PO BID 7 Days Qty: 14 0RF prednisone 20 mg tablet 20 mg PO DAILY 5 Days Qty: 5 0RF promethazine 6.25 mg/5 mL syrup 12.5 mg PO Q6H PRN (Reason: cough) Qty: 120 0RF No Action buprenorphine HCl 8 MG tablet, sublingual 12 mg Sublingual DAILY sertraline 100 mg Tablet 100 mg PO DAILY hydroxyzine HCl 25 mg tablet 25 mg PO PRN PRN Patient Comments: TAKE 1 TABLET BY MOUTH THREE TIMES DAILY NEEDED Discharge Instructions Instructions: Ruptured Eardrum ED Additional Instructions: * You have signs of an ear infection with a rupture of your right eardrum. Start antibiotic as prescribed. First dose given in the emergency department. Please follow-up with your PCP in a few weeks to have the ear reevaluated to ensure that it is healing * You have been prescribed steroids and cough medication to take for your cough. Please use the albuterol inhaler with spacer every 4-6 hours as needed for severe cough HPI General Date/Time Provider Initiated Documentation: 06/04/24 20:48 . Limitations to Documentation: no limitations . Information obtained by: patient . HPI Narrative: 38-year-old female with past medical history of opiate use disorder on buprenorphine presents for evaluation of fever. She reports that about 2 weeks ago everyone in the household had a viral illness. She had some URI symptoms and cough but recovered. She reports that 2 days ago she started having similar symptoms. Reports cough that is productive. She reports severe bilateral ear pain. The right ear is more significantly painful and also has drainage. Yesterday she started having fever. She is a smoker Related Data Home Medications ?Medication ?Instructions ?Recorded ?Confirmed buprenorphine HCl 8 mg sublingual 12 mg sublingual DAILY 12/10/16 06/04/24 tablet sertraline 100 mg tablet 100 mg PO DAILY 06/25/19 06/04/24 hydroxyzine HCl 25 mg tablet 25 mg PO PRN PRN 05/05/22 06/04/24 amoxicillin 875 mg-potassium 1 tab PO BID 7 days #14 tabs 06/04/24 clavulanate 125 mg tablet prednisone 20 mg tablet 20 mg PO DAILY 5 days #5 tabs 06/04/24 promethazine 6.25 mg/5 mL oral 12.5 mg (10 mL) PO Q6H PRN cough 06/04/24 syrup #120 mL Previous Rx's ?Medication ?Instructions ?Recorded amoxicillin 875 mg-potassium 1 tab PO BID 7 days #14 tabs 06/04/24 clavulanate 125 mg tablet prednisone 20 mg tablet 20 mg PO DAILY 5 days #5 tabs 06/04/24 promethazine 6.25 mg/5 mL oral 12.5 mg (10 mL) PO Q6H PRN cough 06/04/24 syrup #120 mL Allergies Allergy/AdvReac Type Severity Reaction Status Date / Time cefaclor (From [facility]) Allergy Unknown Unknown Verified 06/04/24 20:50 sulfamethoxazole (From Allergy Unknown Unknown Verified 06/04/24 20:50 [facility]) trimethoprim (From [facility]) Allergy Unknown Unknown Verified 06/04/24 20:50 General Stated Complaint: RespSymp LAURIE: 3 Exam Narrative Exam Narrative: Review of Systems: All systems reviewed & are unremarkable except as noted in HPI and below Well-developed, no acute distress + Febrile NCAT PERRL, normal conjunctiva + Nasal congestion Left TM with erythema and purulent effusion, right TM perforated RRR, tachycardia mild secondary to fever likely Unlabored respiratory effort, coarse breath sounds worse in the right upper lobe Course Vital Signs Vital signs: Vital Signs Temperature 39.2 C H 06/04/24 20:45 Pulse 112 H 06/04/24 20:45 Respiratory Rate 25 H 06/04/24 20:45 Blood Pressure 129/74 06/04/24 20:45 Pulse Oximetry 93 06/04/24 20:45 Temperature 39.2 C H 06/04/24 20:50 Pulse 115 H 06/04/24 20:50 Respiratory Rate 20 06/04/24 20:50 Respiratory Effort Short of Breath 06/04/24 20:47 Blood Pressure 129/74 06/04/24 20:50 Blood Pressure Position Supine 06/04/24 20:45 Pulse Oximetry 93 06/04/24 20:50 Oxygen Delivery Method Room Air 06/04/24 20:50 Oxygen Flow Rate 0 06/04/24 20:45 Pain Level 8 06/04/24 20:50 Comment gen body aches 06/04/24 20:45 Medical Decision Making Emergent evaluation of acute febrile illness. Patient had symptoms 2 weeks ago and then recurrence of symptoms for the last 2 days. On examination she is noted to be febrile. She has no tachypnea or hypoxia concerning for any respiratory failure. Will get chest x-ray to evaluate for possible pneumonia. Her exam is also consistent with an otitis media and a ruptured otitis on the right. Will treat for this as well. Given that she is a smoker, will get bronchodilator and steroids as well to help with the cough. Chest x-ray does not demonstrate of focal consolidation. Will treat with cough medication, steroids and bronchodilator. Quality:SDOH Health Related Social Needs: No Data to Display PFSH All Active Problems Right otitis media with spontaneous rupture of eardrum (Acute) Otitis media (Acute) Fever (Acute) Smoker (Acute 08/31/13) Suboxone maintenance treatment complicating , antepartum (Acute 08/31/13) Status post repeat low transverse section (Acute 08/31/13) Medical History (Updated 06/04/24 @ 21:51 by Jeremy Guardado MD) Asthma Suboxone maintenance treatment complicating , antepartum Surgical History section (07/28/10) [facility]- 08/31/2013 Family History Mother Substance abuse cocaine during Alcohol abuse Mental disorder Schizophrenia, manic depression Hepatitis C Stroke Multiple sclerosis Asthma Father No problems noted. Brother Substance abuse multiple drugs Alcohol abuse Mental disorder Depression, pulling hair out disorder Social History Smoking/Tobacco Use Status: Current every day Tobacco Type: cigarettes Smoking risk assessment performed?: Yes Alcohol Intake: never Drug use: Current Sobriety Substance use type: opiates Housing: apartment Do you feel safe at home: Yes Do you feel safe in your relationship?: Yes
[2024-06-04] MEDS: Amoxicillin 875/Clav. 125 TAB PO (21:41)
[2024-06-04] MEDS: Acetaminophen 500 MG TAB 1000 MG PO (21:41)
[2024-06-04] MEDS: Inhaler, Assist Device 1 EACH MC (21:42)
[2024-06-04] MEDS: predniSONE 20 MG TAB 60 MG PO (21:42)
[2024-06-04] MEDS: Albuterol HFA 8 GM 60 PUFF INH IH (21:42)
--- NOTE | 2024-06-04 21:47 | DI.RAD_ITS ---
Exam(s) XR CHEST 2V PA LATERAL EXAM: XR CHEST 2V PA LATERAL CLINICAL HISTORY: cough. TECHNIQUE: 2D digital imaging was performed. COMPARISON: No exams were available for comparison FINDINGS: 2 views: Heart size is normal. The mediastinum is not widened. Lungs are clear. No infiltrates nor pleural effusions. IMPRESSION: No acute pulmonary findings. DATA REPOSITORY: RADIATION DOSE DELIVERED:
[2024-06-04 22:01] VITALS: BP 128/62; PULSE 99; RESP 16; TEMP 37.5; O2SAT 99
--- NOTE | 2024-06-04 23:24 | DI.VRAD_ITS ---
PROCEDURE INFORMATION: Exam: XR Chest Exam date and time: 06/04/2024 9:43 PM Age: 38 years old Clinical indication: Other: Cough TECHNIQUE: Imaging protocol: Radiologic exam of the chest. Views: 2 views. COMPARISON: CT CHEST PE ABD PELVIS W 05/05/2022 7:38 PM FINDINGS: Lungs: Unremarkable. No consolidation. Pleural spaces: Unremarkable. No pleural effusion. No pneumothorax. Heart/Mediastinum: Unremarkable. No cardiomegaly. Bones/joints: Unremarkable. IMPRESSION: No acute findings. Dictated and Authenticated by: Renee Salmon MD. Ordering:[facility] Geo Puente MD
== END 2024-06-04 22:01 | disposition home or self-care (01) ==
PROVIDERS: Emergency Provider Emergency Medicine; PCP Family Medicine
DX: R50.9 Fever, unspecified (principal); R05.9 Cough, unspecified; H66.93 Otitis media, unspecified, bilateral; H72.91 Unspecified perforation of tympanic membrane, right ear; F17.210 Nicotine dependence, cigarettes, uncomplicated
CPT/HCPCS: 99283; 71046; J7512

== ENCOUNTER 2025-01-19 20:53 | Emergency (ER) | payer MEDICAID, SELFPAY ==
[2025-01-19 20:58] VITALS: BP 128/76; PULSE 103; RESP 16; TEMP 36.7; O2SAT 100
--- NOTE | 2025-01-19 21:00 | DI.CT_ITS ---
Exam(s) CT ABDOMEN PELVIS W EXAM: CT ABDOMEN PELVIS W CLINICAL HISTORY: LUQ abdominal pain x 3 hours, TTP LUQ and LLQ. TECHNIQUE: Imaging Protocol: Axial computed tomography images with coronal and sagittal reformatted images were created and reviewed CONTRAST MATERIAL: Intravenous: Omnipaque 350 Contrast volume:75 ml Oral: no COMPARISON: CT CT CHEST PE ABD PELVIS W from 05/05/2022 FINDINGS: ABDOMEN and PELVIS: Lung Bases: No acute findings. Liver: Normal density. No suspicious mass. Gallbladder and biliary tract: Contracted. No gross evidence of radiodense calculus. No wall thicken ing or pericholecystic fluid. No biliary dilation. Pancreas: Normal density. No abnormal calcifications or inflammatory process. No evidence of mass. Spleen: Normal. Kidneys: Normal size, contour and axis. No radiodense stones. No obstructive uropathy. No suspicious masses seen. Adrenal glands: No masses seen. Vasculature: Abdominal aorta non-dilated. Mildly prominent dilated pelvic veins in the left adnexal region which could indicate pelvic congestion syndrome. Soft tissues: Region. Bladder: Nearly empty. No gross wall thickening. No calculi.No focal mass. Bowel: No obstruction. No bowel wall thickening. No evidence of appendicitis.. Normal quantity of stool. Peritoneal cavity: Trace fluid in the pelvis, physiologic. No focal collection. No mesenteric inflam matory response. No free air. Bones: Unremarkable for age. Reproductive organs: Unremarkable. Lymph nodes: No pathologically enlarged lymph nodes. IMPRESSION:: No acute abnormality in the abdomen or pelvis. The preliminary [facility] report was reviewed. RADIATION DOSE DELIVERED: Total DLP DATA REPOSITORY: All CT scans at this facility are submitted to the National Radiology Data Registry (NRDR) Dose Index Registry (DIR) with the [employer] (ACR). RADIATION OPTIMIZATION: All CT scans at this facility use at least one of these dose optimization te chniques: automated exposure control; mA and/or kV adjustment per patient size (includes targeted exa ms where dose is matched to clinical indication); or iterative reconstruction.
--- NOTE | 2025-01-19 21:15 | W.ED.GENAD ---
Discharge Plan Disposition Patient Disposition: Home Discharge Details Clinical Impression: Abdominal discomfort in left upper quadrant Primary Care Provider: Leonel Bhakta ED Provider: Sharmin Franco Home Meds and New Rx's Prescriptions: No Action buprenorphine HCl 8 MG tablet, sublingual 12 mg Sublingual DAILY buprenorphine-naloxone [Suboxone] 8-2 mg film 1 film buccal DAILY sertraline 100 mg Tablet 100 mg PO DAILY hydroxyzine HCl 25 mg tablet 25 mg PO PRN PRN Patient Comments: TAKE 1 TABLET BY MOUTH THREE TIMES DAILY NEEDED Discharge Instructions Additional Instructions: Please call your primary care provider first thing Tuesday to schedule a follow-up appointment. It may also be worth calling [facility] to schedule an appointment if you continue to have lower abdominal discomfort. Your workup today was reassuring, there were no acute abnormalities noted on CT scan or blood work. I recommend that you take famotidine 20 mg twice a day (available over the counter as generic pepcid) for treatment of potential heartburn which could be contributing to your symptoms. Ibuprofen 600 mg every 8 hours and/or Tylenol 650 mg every 6 hours may be taken for discomfort as needed. Heating pads may also be helpful. Return to emergency care if you develop new fever/chills, uncontrollable vomiting, severe abdominal pain, blood in your stool or urine, inability to urinate or have bowel movements, or if you are very worried and need to be rechecked again immediately Ref[place]: [facility] [place] Leonel Bhakta [Primary Care Provider] - [facility] General Date/Time Provider Initiated Documentation: 01/19/25 20:55. [facility] Narrative: Lisa is a 39 year old female who presents for evaluation of left upper quadrant pain, accompanied by her . She began experiencing persistent left upper quadrant abdominal pain 2.5 to 3 hours prior, initially described as a constant cramping that lasted 1 hour but has since decreased in intensity, now intermittent throbbing. No analgesics taken. She did find some relief in symptoms with holding her side and leaning to the right side. Denies fever/chills, headache, sore throat, cough, chest pain, difficulty breathing, change in p.o. intake, nausea/vomiting, change in bowel or bladder function. Regular bowel movements, last 1 yesterday, no blood or black stools. Denies urinary symptoms such as dysuria, hematuria, foul odor to urine. Normal appetite and hydration earlier in the day, no food intake since pain onset. Has regular menstrual cycles, last 1 at the beginning of this month. No history of GERD or digestive disorders. Surgical history: section. No recent abdominal imaging. Related Data Home Medications ?Medication ?Instructions ?Recorded ?Confirmed buprenorphine HCl 8 mg sublingual 12 mg sublingual DAILY 12/10/16 01/19/25 tablet sertraline 100 mg tablet 100 mg PO DAILY 06/25/19 01/19/25 hydroxyzine HCl 25 mg tablet 25 mg PO PRN PRN 05/05/22 01/19/25 buprenorphine 8 mg-naloxone 2 mg 1 film buccal DAILY 10/16/24 01/19/25 sublingual film (Suboxone) Allergies Allergy/AdvReac Type Severity Reaction Status Date / Time cefaclor (From [facility]) Allergy Unknown Unknown Verified 01/19/25 21:01 sulfamethoxazole (From Allergy Unknown Unknown Verified 01/19/25 21:01 ) trimethoprim (From [facility]) Allergy Unknown Unknown Verified 01/19/25 21:01 General Stated Complaint: FlankPain LAURIE: 3 Exam Narrative Exam Narrative: General Appearance: Normal. Patient alert and oriented, no acute distress. Well-appearing Vital signs: Within normal limits. Respiratory: Lungs auscultated; easy work of breathing, lung sounds clear bilaterally. Cardiovascular: Normal heart sounds, regular rate and rhythm. Radial pulses intact bilaterally Gastrointestinal: Abdomen is soft, nondistended. No rigidity or guarding normal bowel sounds. Mild sensitivity on the left upper and left lower abdomen. No ecchymosis or skin lesions noted to abdomen. Skin: Warm and dry, no rash. Psychiatric: Normal. Course Vital Signs Vital signs: Vital Signs Temperature 36.7 C 01/19/25 20:58 Pulse 103 H 01/19/25 20:58 Respiratory Rate 16 01/19/25 20:58 Blood Pressure 128/76 01/19/25 20:58 Pulse Oximetry 100 01/19/25 20:58 Temperature 36.7 C 01/19/25 20:58 Pulse 103 H 01/19/25 20:58 Respiratory Rate 16 01/19/25 20:58 Blood Pressure 128/76 01/19/25 20:58 Pulse Oximetry 100 01/19/25 20:58 Oxygen Delivery Method Room Air 01/19/25 20:58 Oxygen Flow Rate 0 01/19/25 20:58 Pain Level 4 01/19/25 20:58 Medical Decision Making Initial Assessment: Left upper abdominal pain started 2.5 to 3 hours ago, now occasional throbbing. No nausea, vomiting, fever, chills, chest pain, or respiratory distress. No history of GERD or digestive disorders. Mild tenderness on the left lower abdomen. DDx includes but is not limited to: Gastritis, hepatitis, pancreatitis, kidney stone, muscle spasm/strain, diverticulitis, pneumonia less likely. As pain is limited to the abdomen, history and presentation not suspicious for pulmonary embolism. ED Course: - Labs for liver function, kidney function, and electrolytes. - test. - Abdominal scan ordered. - Abstain from eating or drinking until scan results. I independently interpreted the following tests: CBC, CMP, lipase, PT/INR and APTT reassuring. hCG negative. UA notable for trace intact blood, not consistent with UTI. CT abdomen/pelvis reassuring, no acute changes consistent with patient's symptoms. However, pelvic venous congestion was noted and patient does report that she has chronic lower abdominal discomfort that she has been to have checked out by [facility]. Recommend follow-up with [facility] as discussed Final Assessment: Left upper quadrant pain, improved since onset. Overall workup reassuring, no red flags indicating need for acute intervention at this time. Clinical Impression: - LUQ discomfort. Unclear etiology of left upper quadrant discomfort, possibly related to gastritis. Recommend use of famotidine 20 mg twice daily for heartburn and follow-up with PCP for further evaluation/management. Reviewed discharge instructions with patient, including symptomatic management and red flags indicating need for return to emergency care. She voiced agreement with plan of care MDM Components Evaluation: - Number of Differential Diagnoses or Management Options: Flank pain - Amount and Complexity of Data Reviewed: Labs for liver function, kidney function, electrolytes, test, abdominal scan - Risk of Complication and Morbidity or Mortality: Moderate risk due to abdominal pain and need for imaging to rule out serious conditions. Patient consented to the use of [facility] Imaging Data Radiologic Study: Radiologist's impression: PROCEDURE INFORMATION: Exam: CT Abdomen And Pelvis With Contrast Exam date and time: 01/19/2025 9:56 PM Age: 39 years old Clinical indication: Other: Luq abdominal pain x 3 hours, ttp luq and llq TECHNIQUE: Imaging protocol: Computed tomography of the abdomen and pelvis with contrast. Contrast material: 350; Contrast volume: 75 ml; Contrast route: INTRAVENOUS (IV); COMPARISON: CT CHEST PE ABD PELVIS W 05/05/2022 7:38 PM FINDINGS: Lungs: Stable subcentimeter right lower lobe pulmonary nodule. Lower lungs are otherwise clear. Liver: Normal. No mass. Gallbladder and biliary ducts: Gallbladder is contracted but otherwise unremarkable. Mild diffuse biliary ductal dilation. Pancreas: Normal. No ductal dilation. Spleen: Normal. No splenomegaly. Adrenal glands: Normal. No mass. Kidneys and ureters: Normal. No hydronephrosis. Stomach and bowel: Unremarkable. No obstruction. No mucosal thickening. Appendix: No evidence of appendicitis. Intraperitoneal space: Minimal free fluid in the pelvis, possibly physiologic. No free air. Vasculature: Moderately prominent varices in the bilateral pelvis compatible with pelvic venous congestion. Abdominal aorta normal in size. Lymph nodes: Unremarkable. No enlarged lymph nodes. Urinary bladder: Unremarkable as visualized. Reproductive: 2 cm peripherally enhancing cyst in the right ovary compatible with corpus luteum cyst. No further follow-up indicated. Uterus and left ovary appear unremarkable. Bones/joints: Unremarkable. No acute fracture. Soft tissues: Unremarkable. IMPRESSION: Incidental findings in the pelvis including minimal free fluid, benign-appearing right ovarian cyst and evidence of pelvic venous congestion. Otherwise unremarkable CT abdomen and pelvis. Quality:SDOH Health Related Social Needs: No Data to Display PFSH All Active Problems Abdominal discomfort in left upper quadrant (Acute) Carpal tunnel syndrome (Acute) Obesity (Chronic) Verruca vulgaris (Acute) Mood disorder (Acute) Right otitis media with spontaneous rupture of eardrum (Acute) Smoker (Acute 08/31/13) Suboxone maintenance treatment complicating , antepartum (Acute 08/31/13) Status post repeat low transverse section (Acute 08/31/13) Medical History (Updated 01/19/25 @ 23:07 by Sharmin Garg) Asthma Suboxone maintenance treatment complicating , antepartum Surgical History section (07/28/10) [facility]- 08/31/2013 Family History Mother Substance abuse cocaine during Alcohol abuse Mental disorder Schizophrenia, manic depression Hepatitis C Stroke Multiple sclerosis Asthma Father No problems noted. Brother Substance abuse multiple drugs Alcohol abuse Mental disorder Depression, pulling hair out disorder Social History Smoking/Tobacco Use Status: Current every day Tobacco Type: cigarettes Smoking risk assessment performed?: Yes Alcohol Intake: never Drug use: Current Sobriety Substance use type: opiates Housing: apartment Do you feel safe at home: Yes Do you feel safe in your relationship?: Yes
[2025-01-19] MEDS: Ketorolac 30 MG/ML VIAL 15 MG IVP (21:46)
[2025-01-19 21:49] LABS: Abs Immature Grans 0.03 10^3/uL (0.0-0.06); Absolute Eosinophil Count 0.35 10^3/uL (0.0-0.7); Absolute Lymphocyte Count 3.61 10^3/uL (1.2-3.4); Absolute Monocyte Count 0.46 10^3/uL (0.1-0.8); Absolute Neutrophil Count 3.62 10^3/uL (1.2-6.7); Basophils % 1.2 %; Eosinophils % 4.3 %; HCT 43.9 % (36.0-46.0); HGB 14.4 g/dL (11.2-15.7); Immature Grans % 0.4 %; Lymphocytes % 44.2 %; MCHC 32.8 % (32.0-36.0); MCV 92 fL (80-95); MPV 8.8 fL (8.0-11.0); Monocytes % 5.6 %; Neutrophils % 44.3 %; Platelet Count 335 10^3/uL (130-400); RDW 12.8 % (11.7-14.6); WBC 8.17 10^3/uL (4.4-10.8)
[2025-01-19] MEDS: Normal Saline - Diluent 50 ML VIAL IJ (21:56)
[2025-01-19 21:57] LABS: Bilirubin Negative (Negative); Blood Trace-intact (Negative); Clarity Clear (Clear); Glucose Negative (Negative); Ketones Negative (Negative); Leukocyte Esterase Negative (Negative); Nitrite Negative (Negative); Specific Gravity 1.025 (1.005-1.025); Urobilinogen 0.2 mg/dL (Up to 0.2)
[2025-01-19 21:58] LABS: Lipase 36 U/L (<78)
[2025-01-19 22:01] LABS: Prothrombin Time 9.8 sec (9.1-11.1)
[2025-01-19 22:02] LABS: Bacteria Rare HPF (Negative); C & S Indicated? No; Casts Negative LPF (Negative); Crystals Negative HPF (Negative); Epithelial Cells Rare HPF (Negative); Mucus Negative (Negative); WBC Negative HPF (0-5)
[2025-01-19 22:04] LABS: ALT 16 U/L (14-59); AST 15 U/L (15-37); Albumin 3.8 g/dL (3.4-5.0); Alkaline Phosphatase 78 U/L (46-116); BUN 9 mg/dL (7-18); Bilirubin, Total 0.3 mg/dL (0.2-1.0); CREATININE 0.9 mg/dL (0.55-1.02); Calcium 8.9 mg/dL (8.5-10.1); Chloride 103 mmol/L (98-107); Estimated GFR 84.44 (mL/min/1.73m2); Glucose 89 mg/dL (74-106); Sodium 138 mmol/L (136-145); Total Protein 7.6 g/dL (6.4-8.2)
[2025-01-19] MEDS: Omnipaque 350 MG/ML 100 ML BTL 75 ML IJ (22:17)
--- NOTE | 2025-01-19 22:49 | DI.VRAD_ITS ---
PROCEDURE INFORMATION: Exam: CT Abdomen And Pelvis With Contrast Exam date and time: 01/19/2025 9:56 PM Age: 39 years old Clinical indication: Other: Luq abdominal pain x 3 hours, ttp luq and llq TECHNIQUE: Imaging protocol: Computed tomography of the abdomen and pelvis with contrast. Contrast material: 350; Contrast volume: 75 ml; Contrast route: INTRAVENOUS (IV); COMPARISON: CT CHEST PE ABD PELVIS W 05/05/2022 7:38 PM FINDINGS: Lungs: Stable subcentimeter right lower lobe pulmonary nodule. Lower lungs are otherwise clear. Liver: Normal. No mass. Gallbladder and biliary ducts: Gallbladder is contracted but otherwise unremarkable. Mild diffuse biliary ductal dilation. Pancreas: Normal. No ductal dilation. Spleen: Normal. No splenomegaly. Adrenal glands: Normal. No mass. Kidneys and ureters: Normal. No hydronephrosis. Stomach and bowel: Unremarkable. No obstruction. No mucosal thickening. Appendix: No evidence of appendicitis. Intraperitoneal space: Minimal free fluid in the pelvis, possibly physiologic. No free air. Vasculature: Moderately prominent varices in the bilateral pelvis compatible with pelvic venous congestion. Abdominal aorta normal in size. Lymph nodes: Unremarkable. No enlarged lymph nodes. Urinary bladder: Unremarkable as visualized. Reproductive: 2 cm peripherally enhancing cyst in the right ovary compatible with corpus luteum cyst. No further follow-up indicated. Uterus and left ovary appear unremarkable. Bones/joints: Unremarkable. No acute fracture. Soft tissues: Unremarkable. IMPRESSION: Incidental findings in the pelvis including minimal free fluid, benign-appearing right ovarian cyst and evidence of pelvic venous congestion. Otherwise unremarkable CT abdomen and pelvis. Dictated and Authenticated by: Erik Gannon MD. Orderin Coy Finney MD
[2025-01-19] MEDS: Famotidine 20 MG TAB PO (23:12)
[2025-01-19 23:14] VITALS: BP 128/76; PULSE 103; RESP 16; TEMP 36.7; O2SAT 100
== END 2025-01-19 23:14 | disposition home or self-care (01) ==
PROVIDERS: Emergency Provider Nurse Practitioner Family; PCP Student in an Organized Health Care Education/Training Program
DX: R10.12 Left upper quadrant pain (principal)
CPT/HCPCS: 99283; 99285; 96374; 81025; 36415; 80053; 83690; 74177; 81003; 81015; 85025; 85610; 85730; J1885; J3490

== ENCOUNTER 2025-02-22 13:50 | Outpatient (REF) | payer MEDICAID, SELFPAY ==
[2025-02-22 15:33] LABS: Bacteria Few HPF (Negative); C & S Indicated? No; Crystals Negative HPF (Negative); Epithelial Cells Many HPF (Negative); Mucus Negative (Negative); WBC 0-2 HPF (0-5)
== END 2025-02-22 13:51 | disposition home or self-care (01) ==
LOC: NCHCN 13:50
PROVIDERS: PCP Student in an Organized Health Care Education/Training Program; Visit Provider Student in an Organized Health Care Education/Training Program
DX: R31.9 Hematuria, unspecified (principal)
CPT/HCPCS: 81015